=== PATIENT | female | born 2000 | race Caucasian/White ===

== ENCOUNTER 2023-11-25 17:57 | Emergency (ER) | payer OTHER, SELFPAY ==
--- NOTE | 2023-11-25 | ECG_ITS ---
Test Reason : chest pain Blood Pressure : / mmHG Vent. Rate : 106 BPM Atrial Rate : 106 BPM P-R Int : 124 ms QRS Dur : 074 ms QT Int : 326 ms P-R-T Axes : 081 065 036 degrees QTc Int : 433 ms Sinus tachycardia Possible Left atrial enlargement Nonspecific ST and T wave abnormality Borderline ECG No previous ECGs available Referred By: Generic ED Physician Electronically Signed By:ARELIS LYNN
[2023-11-25 18:11] VITALS: BP 141/89; PULSE 86; RESP 16; TEMP 36.4; O2SAT 100; BMI 23.2
--- NOTE | 2023-11-25 18:13 | ED.GENADULT ---
HPI - General Adult General Chief complaint: Chest Pain Stated complaint: chest pain x3 days Source: patient Mode of arrival: ambulatory Limitations: no limitations History of Present Illness ED Provider: Glendy Jacob PA-C HPI narrative: Patient is a 23 year old assigned female at with no reported medical history presenting to the emergency department today with left sided chest pain. Patient states that over the last 3 days she has had left sided chest pain. Patient denies any dizziness, lightheadedness, abdominal pain, nausea, vomiting, fever, chills, blurry vision, double vision, loss of vision, difficulty breathing, shortness of breath, back pain, night sweats, pain with urination, increased urinary frequency, increased urinary urgency, blood in his urine or stool, syncope or a near syncopal episode, recent trauma or falls, bowel incontinence, bladder incontinence, or any other complaints at this time. Onset (ago): day(s) (3) Location: chest Severity: mild Relieving factors: none Exacerbating factors: none Associated symptoms: chest pain Treatments prior to arrival: none Related Data Allergies Allergy/AdvReac Type Severity Reaction Status Date / Time No Known Allergies Allergy Verified 11/25/23 18:12 Review of Systems Constitutional: Constitutional: Reports no additional constitutional complaints, Denies chills, Denies fever(s) and Denies night sweats Eyes: Eyes: Reports no additional eye complaints, Denies blurry vision, Denies change in vision, Denies diplopia, Denies eye discharge, Denies loss of vision and Denies eye pain ENT: Denies dizziness Cardiovascular: Cardiovascular: Reports no additional cardiovascular complaints, Reports chest pain, Denies lightheadedness, Denies Loss of Consciousness and Denies dyspnea Respiratory: Respiratory: Reports no additional respiratory complaints and Denies dyspnea Gastrointestinal: Gastrointestinal: Reports no additional gastrointestinal complaints, Denies abdominal pain, Denies melena, Denies hematochezia, Denies change in bowel habits and Denies change in stool character Genitourinary: Genitourinary: Denies hematuria, Denies urinary frequency, Denies dysuria, Denies urinary incontinence, Denies urinary hesitancy and Denies urinary urgency Musculoskeletal: Musculoskeletal: Reports no additional musculoskeletal complaints, Denies numbness and Denies tingling Neurologic: Denies dizziness, Denies loss of vision, Denies numbness and Denies tingling Psychiatric: Psychiatric: Reports no additional psychiatric complaints Endocrine: Endocrine: Reports no additional endocrine complaints Hematologic/Lymphatic: Hematologic/Lymphatic: Reports no additional hematologic/lymphatic complaints Allergic/Immunologic: Allergic/Immunologic: Reports no additional allergic/immunologic complaints PMFSH Past Medical History Attestation statement: The following information was validated with the patient. Source: old records reviewed and nursing notes reviewed Social History Social History Advance Directives: No Advance Directives Information Provided: No Do you have a plan to hurt others: No Plan Physical Exam ED Vital Signs: BMI result Body Mass Index 23.2 Const General: cooperative, no acute distress, alert and awake Nutritional Appearance: well nourished Orientation/consciousness: patient oriented x3 Limitations: no limitations HENMT Head: Yes normal to inspection and Yes atraumatic Ears: hearing grossly normal bilaterally and external ears normal General nose exam: Normal external nose present, no nasal discharge noted and no epistaxis Face and sinus: Yes normal facial exam, No abrasion and No laceration Mouth: Normal oral and palatal mucosa present, no drooling and no muffled voice Eyes General: appearance normal, both eyes and all related structures Periorbital: periorbital findings normal Eyelids: Yes eyelids normal Conjunctivae: conjunctivae normal Pupils: Equal, round and reactive pupils present EOM: EOMs intact bilaterally Neck Neck: Yes normal visual inspection, Yes full ROM and Yes no lymphadenopathy Chest Chest palpation & inspection: normal inspection of the chest Resp Effort & Inspection: normal respiratory effort and able to speak in complete sentences GI Inspection: Yes normal to inspection Neuro General: patient oriented x3 and moves all extremities Cranial nerves: Yes Equal, round and reactive pupils present Cognition (Neuro): normal cognition Extrem General: Yes normal to inspection, Yes full ROM and Yes capillary refill normal Psych Appearance: grossly normal Mental Status: mental status grossly normal Affect: normal affect Attitude: cooperative Thought process: Normal thought process present Thought content: Normal thought content present Insight: Good insight present (Psych) Course Course Course Narrative: RME performed by Glendy Jacob PA-C. Patient is a 23 year old assigned female at presenting to the emergency department with chest pain. Patient states that she has been having intermittent chest pain all throughout today. Detailed physical exam and review of systems are deferred to the school plant consultant. EKG, labs, imaging, and swabs ordered. Patient placed back in the waiting room pending room availability and results. Medical Decision Making Medical Decision Making [facility] Narrative: Patient is a 23 year old assigned female at with no reported medical history presenting to the emergency department today with left sided chest pain. Patient's limited physical exam performed in triage was unremarkable. Patient's blood work was unremarkable. Patient's EKG was unremarkable. Patient left the department without completing treatment. Patient left the department before myself or any of the other emergency department clinicians could explain to or review with the patient; physical exam findings, test results, need or lack there of for additional testing, need or lack there of for a procedure to be performed, need or lack there of for hospital admission / transfer, need or lack there of for prescription medication, treatment options, or a treatment plan. Differential Diagnosis Differential Diagnoses: The differential diagnosis associated with the presentation includes NSTEMI STEMI Atypical chest pain Chest pain Admission/Observation Consideration of admission/observation: Escalation of care including admission/observation considered Patient would have been admitted to the hospital had her work up had any findings where hospital admission was appropriate and her clinical presentation warranted hospital admission. Lab Data [facility] Lab Attestation statement: I reviewed the patient's lab results. My interpretation of these results are in the MDM Rationale portion of this note. 11/25/23 18:27 11/25/23 18:27 Labs: Lab Results 11/25/23 Range/Units 18:27 WBC 10.9 H (4.8-10.8) X10*3/uL RBC 4.59 (4.20-5.50) X10*6/uL Hgb 14.4 (12.0-16.0) g/dl Hct 41.6 (37.0-47.0) % MCV 90.6 (80.0-98.0) fL MCH 31.4 (27.0-33.0) pg MCHC 34.6 (31.0-35.0) g/dl RDW 11.9 (11.0-16.0) % Plt Count 236 (160-400) X10*3/uL MPV 10.1 (9.4-12.3) fL Immature Gran % (Auto) 0.4 (0.0-0.4) % Neut % (Auto) 55.2 (45-73) % Lymph % (Auto) 36.8 (20-40) % Dickson % (Auto) 6.4 (2-11) % Eos % (Auto) 0.7 (0-4) % Baso % (Auto) 0.5 (0-2) % Lymph # (Auto) 4.0 (1.2-4.9) X10*3/uL Dickson # (Auto) 0.7 (0.1-1.2) X10*3/uL Eos # (Auto) 0.1 (0.0-0.4) X10*3/uL Baso # (Auto) 0.1 (0.0-0.2) X10*3/uL Abs Immat Gran (auto) 0.04 H (0.00-0.03) X10*3/uL Absolute Neuts (auto) 6.0 (2.0-8.3) x10*3/uL Absolute Nucleated RBC 0.000 (0.0-0.012) X10*3/uL Nucleated RBC % (auto) 0.0 (0.0-0.2) /100WBC Sodium 140 (135-145) mmol/L Potassium 3.7 (3.3-5.1) mmol/L Chloride 106 (96-108) mmol/L Carbon Dioxide 24 (22-29) mmol/L Anion Gap 14 (12-20) BUN 11 (9-16) mg/dL Creatinine 0.78 (0.5-1.4) mg/dL Estim Creat Clear Calc 98.5 Estimated GFR > 60 Random Glucose 94 (60-115) mg/dL Calcium 9.9 (8.4-10.2) mg/dL Magnesium 2.1 (1.6-2.6) mg/dL Total Bilirubin 2.1 H (0.0-1.0) mg/dL AST 14 (5-31) U/L ALT 9 (0-31) U/L Alkaline Phosphatase 47 (39-117) U/L Troponin I High Sens < 2.7 (<3.5-17.0) ng/L Total Protein 7.6 (6.5-8.0) g/dL Albumin 4.6 (3.5-5.0) g/dL Beta HCG, Quant < 2 mIU/mL Influenza Type A (PCR) NEGATIVE (Negative) Influenza Type B (PCR) NEGATIVE (Negative) RSV RNA Qual (PCR) NEGATIVE (Negative) SARS-CoV-2 RNA (RT-PCR) NEGATIVE (Negative) Independent Interpretation I performed an independent interpretation of an: EKG Interpretation: Vent. Rate: 106 BPM Atrial Rate: 106 BPM P-R Int: 124 ms QRS Dur: 074 ms QT Int: 326 ms P-R-T Axes: 081 065 036 degrees QTc Int: 433 ms Sinus tachycardia Possible Left atrial enlargement Borderline ECG No previous ECGs available DD/ [id number] Discharge Plan Discharge Clinical Impression: Chest pain Patient Disposition: Left W/O Completing Treatment Discharge Date/Time: 11/26/23 00:26
[2023-11-25 18:32] LABS: MANUAL DIFF FLAG NO
[2023-11-25 18:34] LABS: Basophils Absolute Auto 0.1 X10*3/uL (0.0-0.2); Basophils Percent Auto 0.5 % (0-2); Eosinophils Absolute Auto 0.1 X10*3/uL (0.0-0.4); Eosinophils Percent Auto 0.7 % (0-4); Hematocrit 41.6 % (37.0-47.0); Hemoglobin 14.4 g/dl (12.0-16.0); Imm Gran Abs Auto 0.04 X10*3/uL (0.00-0.03); Imm Gran Pct Auto 0.4 % (0.0-0.4); Lymphocytes Percent Auto 36.8 % (20-40); Mean Corpuscular HGB Conc 34.6 g/dl (31.0-35.0); Mean Corpuscular Hemoglobin 31.4 pg (27.0-33.0); Mean Corpuscular Volume 90.6 fL (80.0-98.0); Mean Platelet Volume 10.1 fL (9.4-12.3); Monocytes Absolute Auto 0.7 X10*3/uL (0.1-1.2); Monocytes Percent Auto 6.4 % (2-11); Neutrophils Percent Auto 55.2 % (45-73); Platelet Count 236 X10*3/uL (160-400); Red Blood Count 4.59 X10*6/uL (4.20-5.50); Red Cell Distribution Width 11.9 % (11.0-16.0); White Blood Count 10.9 X10*3/uL (4.8-10.8)
[2023-11-25 18:59] LABS: Alanine Aminotransferase 9 U/L (0-31); Albumin Level 4.6 g/dL (3.5-5.0); Alkaline Phosphatase 47 U/L (39-117); Anion Gap 14 (12-20); Aspartate Amino Transferase 14 U/L (5-31); Bilirubin Total 2.1 mg/dL (0.0-1.0); Blood Urea Nitrogen 11 mg/dL (9-16); Calcium 9.9 mg/dL (8.4-10.2); Carbon Dioxide 24 mmol/L (22-29); Chloride 106 mmol/L (96-108); Creatinine Clr Calc Pharmacy 98.5; Estimated Glomerular Filt Rate > 60; Glucose Random 94 mg/dL (60-115); Magnesium 2.1 mg/dL (1.6-2.6); Potassium 3.7 mmol/L (3.3-5.1); Sodium 140 mmol/L (135-145); Total Protein 7.6 g/dL (6.5-8.0)
[2023-11-25 19:03] LABS: HCG Quantitative < 2 mIU/mL; Troponin-I High Sensitivity < 2.7 ng/L (<3.5-17.0)
[2023-11-25 19:46] LABS: Influenza A PCR NEGATIVE (Negative); Influenza B PCR NEGATIVE (Negative); Resp Syncy Virus RNA Qual PCR NEGATIVE (Negative); SARS COV2 PCR INHOUSE NEGATIVE (Negative)
--- OUTSIDE RECORDS SUMMARY | 2023-11-25 22:18 | XMS_ITS | Continuity of Care Document ---
Author Organization [facility] Address [address] [address]- Care Team Providers Care Hotel Manager Name Role Phone Zulema DOLL, Piedad Dyson Primary Care Physician [phone] Encounter [facility] Date(s): 08/18/20 - 09/17/20 [facility] [address] [address] Allergies, Adverse Reactions, Alerts Substance Reaction Severity Status NKA Active Immunizations Given and Recorded Vaccine Date Status Refusal Reason meningococcal group B vaccine 08/23/20 Given meningococcal group B vaccine 01/15/19 Given Meningococcal Conjugate Vaccine 01/15/19 Given Meningococcal Conjugate Vaccine 10/12/14 Recorded influenza virus vaccine, inactivated 01/15/19 Give n influenza virus vaccine, inactivated 03/15/15 Chicho rded influenza virus vaccine, inactivated 02/05/13 Chicho rded influenza virus vaccine, inactivated 03/25/07 Give n influenza virus vaccine, inactivated 04/04/04 Give n influenza virus vaccine, inactivated 03/06/04 Give n Human Papillomavirus Vaccine 10/19/15 Recorded Human Papillomavirus Vaccine 03/15/15 Recorded Human Papillomavirus Vaccine 10/12/14 Recorded tetanus/diphtheria/pertussis, acel(Tdap) 10/12/14 Recorded Hepatitis A Pediatric Vaccine 1 09/17/11 Given Hepatitis A Pediatric Vaccine 2 09/12/10 Given influenza virus vaccine, live 3 03/22/10 Given influenza virus vaccine, live 4 01/31/09 Given influenza virus vaccine, live 5 02/03/08 Given influ virus vac, H1N1, inactive(oldterm) 6 01/31/09 Given Varicella Virus Vaccine 7 05/25/08 Given Varicella Virus Vaccine 04/04/04 Given Measles/Mumps/Rubella Virus Vaccine 03/25/07 Given Measles/Mumps/Rubella Virus Vaccine 12/21/03 Given diphtheria/tetanus/pertussis, acel(DTaP) 03/25/07 Given diphtheria/tetanus/pertussis, acel(DTaP) 12/21/03 Given diphtheria/tetanus/pertussis, acel(DTaP) 03/08/03 Given diphtheria/tetanus/pertussis, acel(DTaP) 02 Given diphtheria/tetanus/pertussis, acel(DTaP) 02 Given Poliovirus Vaccine, Inactivated 03/25/07 Given Poliovirus Vaccine, Inactivated 03/08/03 Given Poliovirus Vaccine, Inactivated 02 Given Poliovirus Vaccine, Inactivated 02 Given pneumococcal 7-valent vaccine 04/04/04 Given pneumococcal 7-valent vaccine 03/08/03 Given pneumococcal 7-valent vaccine 02 Given pneumococcal 7-valent vaccine 02 Given Haemophilus B Conj Vaccine (oldterm) 12/21/03 Give n Haemophilus B Conj Vaccine (oldterm) 03/08/03 Give n Haemophilus B Conj Vaccine (oldterm) 02 Give n Haemophilus B Conj Vaccine (oldterm) 02 Give n Haemophilus B Conj Vaccine (oldterm) 8 02 Gi arturo Hepatitis B Vaccine (old term) 06/07/03 Given Hepatitis B Vaccine (old term) 02 Given Hepatitis B Vaccine (old term) 02 Given 1Admin Note: vis 07/03/05 vis given 09/17/11 2Admin Note: VIS 07/03/05 Given 3Admin Note: VIS-11/22/2009 4Admin Note: VIS 11/23/08 given 5Admin Note: FluMist VIS (11/06/07) given 6Admin Note: VIS 01/14/09 given 7Admin Note: VIS (06/26/07) given 8Result Comment: duplicate entry Medications Aviane 100 mcg-20 mcg oral tablet 1 tablet, By Mouth, Daily, Please call and schedule a physical you are due in January 2020- [phone]., # 84 tablet, 3 Refills, Maintenance, 08/23/20 7:38:00 EDT, Tablet, [facility]/pharmacy #[id number], 1 tablet By Mouth Daily,Instr:Please call and schedule a... Start Date: 08/23/20 Status: Ordered Problem List Condition Effective Dates Status Health Status Inform ant Adolescent idiopathic scoliosis(Confirmed) Active Constipation(Confirmed) Active Healthy child(Confirmed) Active Neck pain(Confirmed) Active Social History Social History Type Response Smoking Status Never smoker; Tobacc o user in household: No entered on: 11/06/17 Sex
--- OUTSIDE RECORDS SUMMARY | 2023-11-25 22:18 | XMS_ITS | Continuity of Care Document ---
Author Organization [facility] Address [address] [address]- Care Team Providers Care Chenille Machine Operator Name Role Phone Piedad Poole MD Primary Care Physician Encounter [facility] Date(s): 06/05/19 - 06/12/19 [facility] [address] [address]- [facility] Attending Physician: Not on Staff, Attending MD Allergies, Adverse Reactions, Alerts Substance Reaction Severity Status NKA Active Immunizations Given and Recorded Vaccine Date Status Refusal Reason meningococcal group B vaccine 01/15/19 Given Meningococcal [...] oral tablet 1 tablet, By Mouth, Daily, # 28 tablet, 11 Refills, Maintenance, 10/06/18 14:04:27 EDT, Tablet, 1 tablet By Mouth Daily Start Date: 10/06/18 Status: Ordered MiraLax = 17 Gm, By Mouth, Daily, PRN Constipation, 0 Refills, Maintenance, 03/11/17 10:52:09 EST Start Date: 03/11/17 Status: Ordered MiraLax oral powder for reconstitution = 17 Gm, By Mouth, Daily, dissolve in 8 oz water before taking, # 510 Gm, 2 Refills, Maintenance, 11/28/18 14:30:46 EDT, REC Powder, 17 Gm By Mouth Daily,x30 days,Instr:dissolve in 8 oz water before taking Start Date: 11/28/18 Stop Date: 02/26/19 Status: Ordered Zofran 4 mg oral tablet 1 tablet = 4 mg, By Mouth, Every 8 hours, PRN Nausea & Vomiting, # 6 tablet, 0 Refills, Maintenance, 04/16/19 15:23:00 EST, Tablet, [id number], 163, cm, 04/16/19 14:55:00 EST, Height, 54.3, kg, 03/07/19 17:15:00 EST, Dry Weight Start Date: 04/16/19 Stop Date: 04/18/19 Status: Ordered Problem List Condition Effective Dates Status Health Status Inform ant Adolescent idiopathic scoliosis(Confirmed) Active Constipation(Confirmed) Active Healthy child(Confirmed) Active Neck pain(Confirmed) Active Social History Social History Type Response Smoking Status Never smoker; Tobacc o user in household: No entered on: 11/06/17 Sex
--- OUTSIDE RECORDS SUMMARY | 2023-11-25 22:18 | XMS_ITS | Continuity of Care Document ---
Author Organization [facility] [employer] Address [address] [address]- Care Team Providers Care Maintenance Pipefitter Name Role Phone Zulema DOLL, Piedad Dyson Primary Care Physician Encounter [facility] Date(s): 08/18/20 - 09/22/20 [facility] [address] [address]- Attending Physician: Erin Lang MD Allergies, Adverse Reactions, Alerts Substance Reaction [...] physical you are due in January 2020- [phone]., # 84 tablet, 3 Refills, Maintenance, 08/23/20 7:38:00 EDT, Tablet, [id number], 1 tablet By Mouth Daily,Instr:Please call [...]
--- OUTSIDE RECORDS SUMMARY | 2023-11-25 22:18 | XMS_ITS | Continuity of Care Document ---
Author Organization [facility] Address [address] [place] [address]- Care Team Providers Care Wildlife Conservationist Name Role Phone Ramiro Torres DO Primary Care Physician Encounter [facility] Date(s): 06/09/23 - 06/09/[address] [address]- Discharge Disposition: A-D/C Home Attending Physician: Bharath Luciano MD Admitting Physician: Mustapha DOLL, Bharath Referring Physician: Not on Staff, Referring MD Allergies, Adverse Reactions, Alerts No Known Allergies Immunizations Given and Recorded Vaccine Date Status Refusal Reason SARS-CoV-2 mRNA ([id number]) vax 1 01/02/23 Recorded influenza virus vaccine, inactivated 01/02/23 Chicho rded influenza virus vaccine, inactivated 03/20/22 Chicho rded influenza virus vaccine, inactivated 01/15/19 Give n influenza virus vaccine, inactivated 02/14/17 Chicho rded influenza virus vaccine, inactivated 03/15/15 Chicho rded influenza virus vaccine, inactivated 02/05/13 Chicho rded influenza virus vaccine, inactivated 03/25/07 Give n influenza virus vaccine, inactivated 04/04/04 Give n influenza virus vaccine, inactivated 03/06/04 Give n SARS-CoV-2 (COVID-19) mRNA-1273 vaccine 01/11/21 R ecorded SARS-CoV-2 (COVID-19) mRNA-1273 vaccine 12/14/20 R ecorded meningococcal group B vaccine 08/23/20 Given meningococcal group B vaccine 01/15/19 Given Meningococcal Conjugate Vaccine 01/15/19 Given Meningococcal Conjugate Vaccine 10/12/14 Recorded Human Papillomavirus Vaccine 10/19/15 Recorded Human Papillomavirus Vaccine 12/1/15 Recorded Human Papillomavirus Vaccine 10/12/14 Recorded tetanus/diphtheria/pertussis, acel(Tdap) 10/12/14 Recorded Hepatitis A Pediatric Vaccine 2 09/17/11 Given Hepatitis A Pediatric Vaccine 3 09/12/10 Given influenza virus vaccine, live 4 03/22/10 Given influenza virus vaccine, live 5 01/31/09 Given influenza virus vaccine, live 6 02/03/08 Given influ virus vac, H1N1, inactive(oldterm) 7 01/31/09 Given Varicella Virus Vaccine 8 05/25/08 Given Varicella Virus Vaccine 04/04/04 Given [...] B Conj Vaccine (oldterm) 02 Give n Hepatitis B Vaccine (old term) 06/07/03 Given Hepatitis B Vaccine (old term) 02 Given Hepatitis B Vaccine (old term) 02 Given 1Result Comment: Moderna 2Admin Note: vis 07/03/05 vis given 09/17/11 3Admin Note: VIS 07/03/05 Given 4Admin Note: VIS-11/22/2009 5Admin Note: VIS 08/11/09 given 6Admin Note: FluMist VIS (11/06/07) given 7Admin Note: VIS 01/14/09 given 8Admin Note: VIS (06/26/07) given Medications Diflucan 150 mg oral tablet 1 tablet = 150 mg, By Mouth, Once, PRN vaginal yeast infection, May repeat dose in 48-72 hours if needed., # 2 tablet, 0 Refills, Soft Stop, 10/14/22 11:13:00 EDT, [id number], Partial fill upon patient request if the prescription is for a sche... Start Date: 10/14/22 Status: Ordered Diflucan 150 mg oral tablet 1 tablet = 150 mg, By Mouth, Once, # 1 tablet, 0 Refills, Soft Stop, 11/23/21 11:40:00 EDT, Tablet,[facility], Partial fill upon patient request if the prescription is for a schedule II opioid drug., 166, cm, 11/23/21 11:19:00 EDT, Height, 61... Start Date: 11/23/21 Status: Ordered Diflucan 150 mg oral tablet 1 tablet = 150 mg, By Mouth, Once, # 1 tablet, 1 Refills, Soft Stop, 10/05/21 12:48:00 EDT, [facility], Partial fill upon patient request if the prescription is for a schedule II opioid drug., 164, cm, 10/05/21 10:00:00 EDT, Height, 61.6, kg,... Start Date: 10/05/21 Status: Ordered ondansetron 4 mg oral tablet, disintegrating 1 tablet = 4 mg, By Mouth, Every 8 hours, PRN Nausea & Vomiting, # 10 tablet, 0 Refills, Acute 06/14/23 23:01:00 EST, 06/09/23 23:01:00 EST, Tablet, [facility], Partial fill upon patient request if the prescription is for a schedule II opioid... Start Date: 06/09/23 Stop Date: 06/14/23 Status: Ordered Problem List Condition Confirmation Course Effective Dates Status Health St atus Informant Adolescent idiopathic scoliosis Confirmed Active Constipation Confirmed Active Well adult exam Confirmed Active Vital Signs Most recent to oldest [Reference Range]: 1 2 Height 165 cm (06/09/23 8:15 PM) Weight 59.6 kg (06/09/23 8:15 PM) Oxygen Saturation [94-100 %] 98 % (06/09/23 11:14 PM) 99 % (06/09/23 8:15 PM) Pulse Rate [55-90 bpm] 86 bpm (06/09/23 11:14 PM) 94 bpm *H* (06/09/23 8:15 PM) Blood Pressure [90-138/55-84 mm Hg] 114/ 62mm Hg (06/09/23 11:14 PM) 119/86mm Hg (06/09/23 8:15 PM) Respiratory Rate [16-30 br/min] 20 br/mi n (06/09/23 11:14 PM) 18 br/min (06/09/23 8:15 PM) Temperature [96.8-100.4 DegF] 98.6 DegF (06/09/23 8:15 PM) Mode of Delivery (Oxygen) Room air (06/09/23 11:14 PM) Room air (06/09/23 8:15 PM) Blood pressure sites Arm, right (06/09/23 11:14 PM) Arm, right (06/09/23 8:15 PM) Temperature Route Temporal (06/09/23 8:15 PM) Dry Weight 59.6 kg (06/09/23 8:15 PM) Weight Obtained Via Standing scale (06/09/23 8:15 PM) Dry Weight Obtained Via Standing scale (06/09/23 8:15 PM) Social History Social History Type Response Smoking Status Never smoker; Tobacc o user in household: No entered on: 11/06/17 Sex Patient Care team information Care Team Personnel Name: Ramiro Torres DO Position: [facility] Outreach Member Role: PCP Address: Address: [address] [place] [address] [address] [place] [address]- Care Team Related Persons Name: BRANDON LUJAN Address: [address] [place] [address] Name: NATO LUJAN Address: [address] [place] [address] Name: JOSH LUJAN Address: [place] [address] Name: JACOB RAYO Address: [address] [place] [address] Name: ALISHA BRITO Address: [address] [facility] [address]
--- OUTSIDE RECORDS SUMMARY | 2023-11-25 22:18 | XMS_ITS | Continuity of Care Document ---
Author Organization [facility] Address Unknown Care Team Providers Care Skating Rink Ice Maker Name Role Phone Zulema DOLL, Piedad Dyson Primary Care Physician [phone] Encounter [facility] Date(s): 12/29/20 - 01/05/21 [facility] Encounter Diagnosis Strain of left levator scapulae muscle(Discharge Diagnosis) - 12/29/20 Strain of left trapezius muscle(Discharge Diagnosis) - 12/29/20 Myofascial pain on left side(Discharge Diagnosis) - 12/29/20 Attending Physician: Teresa Gao Allergies, Adverse Reactions, Alerts Substance Reaction Severity Status NKA Active Immunizations Given and Recorded Vaccine Date Status Refusal Reason SARS-CoV-2 (COVID-19) mRNA-1273 vaccine 12/14/20 R ecorded [...] B Conj Vaccine (oldterm) 8 02 Gi atruro Hepatitis B Vaccine (old term) 06/07/03 Given [...] tablet 1 tablet, By Mouth, Daily, # 84 tablet, 3 Refills, Maintenance, 12/23/20 11:33:00 EDT, Tablet, [facility], 1 tablet By Mouth Daily, 163.5, cm, 12/23/20 10:50:00 EDT, Height, 58.6, kg, 12/23/20 10:50:00 EDT, Dry Weight Start Date: 12/23/20 Status: Ordered nicotine 14 mg/24 hr transdermal film, extended release 1 patch, Topically, Daily, for 14 days, Do not cut patch., # 14 patch, 1 Refills, Acute 01/11/21 7:30:00 EDT, 12/14/20 7:30:00 EDT, Patch, [facility], Partial fill upon patient request if theprescription is for a schedule II opioid drug., 1 p... Start Date: 12/14/20 Stop Date: 01/11/21 Status: Ordered Problem List Condition Effective Dates Status Health Status Inform ant Adolescent idiopathic scoliosis(Confirmed) Active Constipation(Confirmed) Active Well adult exam(Confirmed) Active Diagnosis Diagnosis Type Effective Dates Health Status Clinical Service Informant Strain of left levator scapulae muscle Discharge Diagnosis 12/29/20 Strain of left trapezius muscle Discharge Diagnosis 12/29/20 Myofascial pain on left side Discharge Diagnosis 12/29/20 Vital Signs Most recent to oldest [Reference Range]: 1 Height 163.8 cm (12/29/20 10:59 AM) Weight 59.2 kg (12/29/20 10:59 AM) Body Mass Index [18.5-24.99] 22.06 (12/29/20 10:59 AM) Blood Pressure [71-110/30-71 mm Hg] 108/ 60mm Hg (12/29/20 10:59 AM) Temperature [96.8-100.4 DegF] 97.9 DegF (12/29/20 10:59 AM) Blood pressure sites Arm, left (12/29/20 10:59 AM) Temperature Route Temporal (12/29/20 10:59 AM) Dry Weight 59.2 kg (12/29/20 10:59 AM) Social History Social History Type Response Smoking Status Never smoker; Tobacc o user in household: No entered on: 11/06/17 Sex
--- OUTSIDE RECORDS SUMMARY | 2023-11-25 22:18 | XMS_ITS | Continuity of Care Document ---
Author Organization [facility] [employer] Address [address] [address]- Care Team Providers Care Crop Farm Helper Name Role Phone Zulema DOLL, Piedad Dyson Primary Care Physician Encounter [facility] Date(s): 04/04/22 - 05/04/22 [facility] [employer] [address] [address]- Allergies, Adverse Reactions, Alerts No Known Allergies Immunizations Given and Recorded Vaccine Date Status Refusal Reason SARS-CoV-2 (COVID-19) mRNA-1273 vaccine 01/11/21 R ecorded [...] (06/26/07) given 8Result Comment: duplicate entry Medications Diflucan 150 mg oral tablet 1 [...] 61.6, kg,... Start Date: 10/05/21 Status: Ordered Problem List Condition Confirmation Course Effective Dates Status Health St atus Informant Adolescent idiopathic scoliosis Confirmed Active Constipation Confirmed Active Well adult exam Confirmed Active Social History Social History Type Response Smoking Status Never smoker; Tobacc o user in household: No entered on: 11/06/17 Sex Patient Care team information Care Team Personnel Name: Zulema DOLL, Piedad Dyson Position: [facility] Primary Care Physician Member Role: PCP Address: Address: [address] [place] [address], [address] [place] [address]- Care Team Related Persons Name: BRANDON LUJAN Address: home [address] [place], [place] Name: JOSH LUJAN Address: [place] [address] Name: JACOB RAYO Address: home [address] [place] [address] Name: ALISHA BRITO Address: home [address] [place], [place] Name: SHON LEDESMA Address: home [address] [place], [place]
--- OUTSIDE RECORDS SUMMARY | 2023-11-25 22:18 | XMS_ITS | Continuity of Care Document ---
Author Organization [facility] Address [address] [place] [address]- Care Team Providers Care Garment Examiner Name Role Phone Piedad Poole MD Primary Care Physician Encounter [facility] Date(s): 05/28/20 - 05/28/20 [facility] [address] [place] [address]- Discharge Disposition: A-D/C Home Attending Physician: Mohan Hung MD Admitting Physician: Mohan Hung MD Referring Physician: Not on Staff, Referring MD Allergies, Adverse Reactions, Alerts Substance Reaction [...] physical you are due in January 2020- [phone] we will send a reminder, # 84 tablet, 3 Refills, Maintenance, 09/14/19 11:17:00 EDT, Tablet, [facility]/pharmacy #1230, 1 tablet By Mouth Daily,Instr:Ple... Start Date: 09/14/19 Status: Ordered Problem List Condition Effective Dates Status Health Status Inform ant Adolescent idiopathic scoliosis(Confirmed) Active Constipation(Confirmed) Active Healthy child(Confirmed) Active Neck pain(Confirmed) Active Results Orders for Microbiology Reports Name Date Group A Strep Screen and Culture 05/28/20 Microbiology Reports TEST:Group A Strep Screen and Culture STATUS:Unauthenticated BODY SITE: SOURCE:THROAT COLLECTED DATE/TIME:05/28/20 4:31 PM Group A Strep Screen and Culture SPECIMEN DESCRIPTION : THROAT SWAB SPECIAL REQUESTS : NONE DIRECT EXAM : RAPID GROUP A RESULT IS NEGATIVE, REFER TO CULTURE RESULT. REPORT STATUS : PRELIMINARY REPORT Vital Signs Most recent to oldest [Reference Range]: 1 Height 165 cm (05/28/20 4:26 PM) Weight 58 kg (05/28/20 4:26 PM) Oxygen Saturation [94-100 %] 97 % (05/28/20 4:26 PM) Pulse Rate [55-90 bpm] 128 bpm *H* (05/28/20 4:26 PM) Blood Pressure [80-130/50-80 mm Hg] 119/ 73mm Hg (05/28/20 4:26 PM) Respiratory Rate [16-30 br/min] 18 br/mi n (05/28/20 4:26 PM) Temperature [96.8-100.4 DegF] 100.3 DegF (05/28/20 4:26 PM) Mode of Delivery (Oxygen) Room air (05/28/20 4:26 PM) Blood pressure sites Arm, right (05/28/20 4:26 PM) Temperature Route Oral (05/28/20 4:26 PM) Dry Weight 58 kg (05/28/20 4:26 PM) Weight Obtained Via Standing scale (05/28/20 4:26 PM) Social History Social History Type Response Smoking Status Never smoker; Tobacc o user in household: No entered on: 11/06/17 Sex
--- OUTSIDE RECORDS SUMMARY | 2023-11-25 22:18 | XMS_ITS | Continuity of Care Document ---
Author Organization [facility] [employer] Address [address] [address]- Care Team Providers Care Casket Coverer Name Role Phone Piedad Poole MD Primary Care Physician Encounter [facility] Date(s): 04/01/20 - 05/01/20 [facility] [employer] [facility] [address] [address]- Allergies, Adverse Reactions, Alerts Substance Reaction Severity [...] physical you are due in January 2020- [phone] we will send a reminder, # 84 tablet, 3 Refills, Maintenance, 09/14/19 11:17:00 EDT, Tablet, [facility], 1 tablet By Mouth Daily,Instr:Ple... Start Date: 09/14/19 Status: Ordered Problem List Condition Effective Dates Status Health Status Inform ant Adolescent idiopathic scoliosis(Confirmed) Active Constipation(Confirmed) Active Healthy child(Confirmed) Active Neck pain(Confirmed) Active Social History Social History Type Response Smoking Status Never smoker; Tobacc o user in household: No entered on: 11/06/17 Sex
--- OUTSIDE RECORDS SUMMARY | 2023-11-25 22:18 | XMS_ITS | Continuity of Care Document ---
Author Organization [facility] [employer] Address [address] [address]- Care Team Providers Care Cutting Inspector Name Role Phone iPedad Poole MD Primary Care Physician Encounter [facility] Date(s): 08/10/20 - 08/17/20 [employer] [address] [address]- Attending Physician: Piedad Poole MD Allergies, Adverse Reactions, Alerts Substance Reaction [...] physical you are due in January 2020- [phone]., # 84 tablet, 3 Refills, Maintenance, 08/11/20 14:41:00 EDT, Tablet, [facility]/pharmacy #1230, 1 tablet By Mouth Daily,Instr:Please call and schedule a... Start Date: 08/11/20 Status: Ordered Melatonin 5 mg oral tablet 1 tablet = 5 mg, By Mouth, Daily at bedtime, for 30 days, # 30 tablet, 0 Refills, Acute 09/09/20 11:11:00 EDT, 08/10/20 11:11:00 EDT, [facility]/pharmacy #1230, Partial fill upon patient request if the prescription is for a schedule II opioid drug., 165, cm,... Start Date: 08/10/20 Stop Date: 09/09/20 Status: Ordered Problem List Condition Effective Dates Status Health Status Inform ant Adolescent idiopathic scoliosis(Confirmed) Active Constipation(Confirmed) Active Healthy child(Confirmed) Active Neck pain(Confirmed) Active Social History Social History Type Response Smoking Status Never smoker; Tobacc o user in household: No entered on: 11/06/17 Sex
--- OUTSIDE RECORDS SUMMARY | 2023-11-25 22:18 | XMS_ITS | Continuity of Care Document ---
Author Organization [facility] [employer] Address [address] [address]- Care Team Providers Care Prototype Machinist Name Role Phone Piedad Poole MD Primary Care Physician Encounter [facility] Date(s): 03/30/20 - 04/30/20 [facility] [employer] [facility] [address] [address]- Attending Physician: Piedad Poole MD Allergies, Adverse [...] physical you are due in January 2020- [phone] we will send a reminder, # 84 tablet, 3 Refills, Maintenance, 09/14/19 11:17:00 EDT, Tablet, [facility], 1 tablet By Mouth Daily,Instr:Ple... Start Date: 6/1/20 Status: Ordered Problem List Condition Effective Dates Status Health Status Inform ant Adolescent idiopathic scoliosis(Confirmed) Active Constipation(Confirmed) Active Healthy child(Confirmed) Active Neck pain(Confirmed) Active Social History Social History Type Response Smoking Status Never smoker; Tobacc o user in household: No entered on: 11/06/17 Sex
--- OUTSIDE RECORDS SUMMARY | 2023-11-25 22:18 | XMS_ITS | Continuity of Care Document ---
Author Organization [facility] Address [address] [place] [address]- Care Team Providers Care Refrigerator Car Icer Name Role Phone Piedad Poole MD Primary Care Physician Encounter [facility] Date(s): 09/18/20 - 10/22/[address] [address]- Attending Physician: Teresa Gao Admitting Physician: Teresa Gao Referring Physician: Teresa Gao Allergies, Adverse Reactions, Alerts [...] physical you are due in January 2020- [phone]., # 84 tablet, 3 Refills, Maintenance, 08/23/20 [...]
--- OUTSIDE RECORDS SUMMARY | 2023-11-25 22:18 | XMS_ITS | Continuity of Care Document ---
Author Organization [facility] Address Unknown Care Team Providers Care Real Estate Sales Manager Name Role Phone Piedad Poole MD Primary Care Physician Encounter [facility] Date(s): 12/23/20 - 12/30/20 [facility] Attending Physician: Piedad Poole MD Allergies, Adverse Reactions, Alerts Substance Reaction Severity Status NKA Active Immunizations Given and Recorded Vaccine Date Status Refusal Reason SARS-CoV-2 (COVID-19) mRNA-1279 vaccine 12/14/20 R ecorded meningococcal group B [...] Active Constipation(Confirmed) Active Well adult exam(Confirmed) Active Vital Signs Most recent to oldest [Reference Range]: 1 Height 163.5 cm (12/23/20 10:50 AM) Weight 58.6 kg (12/23/20 10:50 AM) Body Mass Index [18.5-24.99] 21.92 (12/23/20 10:50 AM) Blood Pressure [71-110/30-71 mm Hg] 104/ 68mm Hg (12/23/20 10:50 AM) Blood pressure sites Arm, left (12/23/20 10:50 AM) Dry Weight 58.6 kg (12/23/20 10:50 AM) Social History Social History Type Response Smoking Status Never smoker; Tobacc o user in household: No entered on: 11/06/17 Sex
--- OUTSIDE RECORDS SUMMARY | 2023-11-25 22:18 | XMS_ITS | Continuity of Care Document ---
Author Organization [facility] Address Unknown Care Team Providers Care Ticket Dispatcher Name Role Phone Piedad Poole MD Primary Care Physician Encounter [facility] Date(s): 10/05/21 - 10/12/21 [facility] Attending Physician: Piedad Poole MD Allergies, Adverse Reactions, Alerts No Known [...] Daily, # 84 tablet, 3 Refills, Maintenance, 06/23/21 13:13:00 EST, Tablet, [facility], 1 tablet By Mouth Daily, 163, cm, 05/30/21 16:57:00 EST, Height, 57, kg, 05/30/21 16:57:00 EST, Dry Weight Start Date: 06/23/21 Status: Ordered Diflucan 150 mg oral tablet 1 tablet = 150 mg, By Mouth, Once, # 1 tablet, 1 Refills, Soft Stop, 10/05/21 12:48:00 EDT, [facility], Partial fill upon patient request if the prescription is for a schedule II opioid drug., 164, cm, 10/05/21 10:00:00 EDT, Height, 61.6, kg,... Start Date: 10/05/21 Status: Ordered metroNIDAZOLE 500 mg oral tablet 1 tablet = 500 mg, By Mouth, 2 times a day, for 7 days, # 14 tablet, 0 Refills, Acute 10/13/21 17:15:00 EDT, 10/06/21 17:15:00 EDT, Tablet, [facility]/pharmacy #1230, Partial fill upon patient request if the prescription is for a schedule II opioid drug., 16... Start Date: 10/06/21 Stop Date: 10/13/21 Status: Ordered Problem List Condition Effective Dates Status Health Status Inform ant Adolescent idiopathic scoliosis(Confirmed) Active Constipation(Confirmed) Active Well adult exam(Confirmed) Active Vital Signs Most recent to oldest [Reference Range]: 1 Height 164 cm (10/05/21 10:00 AM) Weight 61.6 kg (10/05/21 10:00 AM) Oxygen Saturation [94-100 %] 98 % (10/05/21 10:00 AM) Pulse Rate [55-90 bpm] 75 bpm (10/05/21 10:00 AM) Body Mass Index [18.5-24.99] 22.9 (10/05/21 10:00 AM) Blood Pressure [90-138/55-84 mm Hg] 120/ 78mm Hg (10/05/21 10:00 AM) Blood pressure sites Arm, left (10/05/21 10:00 AM) Dry Weight 61.6 kg (10/05/21 10:00 AM) Social History Social History Type Response Smoking Status Never smoker; Tobacc o user in household: No entered on: 11/06/17 Sex
--- OUTSIDE RECORDS SUMMARY | 2023-11-25 22:18 | XMS_ITS | Continuity of Care Document ---
Author Organization [facility] [employer] [facility] Address [address] [place] [address]- Care Team Providers Care Home Aide Name Role Phone Zulema DOLL, Piedad Dyson Primary Care Physician [phone] Encounter [facility] Date(s): 04/23/22 - 04/30/22 [facility] [employer] [facility] [address] [place] [address]- Attending Physician: Akshat Sharpe MD Referring Physician: Blane Rojas Allergies, Adverse Reactions, Alerts No Known Allergies [...] recent to oldest [Reference Range]: 1 Height 166 cm (04/23/22 9:01 AM) Height Percentile 66.12 % 1 (04/23/22 9:01 AM) Height ZScore 0.42 2 (04/23/22 9:01 AM) 1Result Comment: ^~:!Percentile Source -CDC/WHO 2Result Comment: ^~:!ZScore Source -CDC/WHO Social History Social History Type Response Smoking Status Never smoker; Tobacc o user in household: No entered on: 11/06/17 Sex Patient Care team information Care Team Personnel Name: Piedad Poole MD Position: [facility] Primary Care Physician Member Role: PCP Address: Address: [address] [place] [address], [address] [facility] [place] [address]- Care Team Related Persons Name: BRANDON LUJAN Address: home [address] [place], [place] Name: JOSH LUJAN Address: [place] [address] Name: JACOB RAYO Address: home [address] [place] [address] Name: ALISHA BRITO Address: home [address] [place], [place] Name: SHON LEDESMA Address: home [address] [place] [address]
--- OUTSIDE RECORDS SUMMARY | 2023-11-25 22:18 | XMS_ITS | Continuity of Care Document ---
Author Organization [facility] Address [address] [address]- Care Team Providers Care Survey Associate Name Role Phone Piedad Poole MD Primary Care Physician Encounter [facility] Date(s): 09/07/20 - 09/14/[address] [facility] [address] [address]- Attending Physician: Piedad Poole MD Allergies, Adverse [...] physical you are due in January 2020- [phone]., # 84 tablet, 3 Refills, Maintenance, 08/23/20 [...]
--- OUTSIDE RECORDS SUMMARY | 2023-11-25 22:18 | XMS_ITS | Continuity of Care Document ---
Author Organization [facility] [employer] Address [address] [address]- Care Team Providers Care Cash Accounting Clerk Name Role Phone Piedad Poole MD Primary Care Physician [phone] Encounter [facility] Date(s): 06/05/19 - 06/15/19 [facility] [employer] [address] [address]- [facility] Attending Physician: AdmAlex pineda Admitting Physician: AdmtrAlex Referring Physician: Admtr, Ar8 Allergies, Adverse Reactions, Alerts Substance Reaction Severity [...]
--- OUTSIDE RECORDS SUMMARY | 2023-11-25 22:18 | XMS_ITS | Continuity of Care Document ---
Author Organization [facility] [employer] Address [address] [address]- Care Team Providers Care Trading Specialist Name Role Phone Zulema DOLL, Piedad Dyson Primary Care Physician [phone] Encounter [facility] Date(s): 04/12/22 - 05/12/22 [facility] [employer] [address] [address]- Allergies, Adverse Reactions, Alerts No Known Allergies [...] Personnel Name: Zulema DOLL, Piedad Dyson Position: [facility] Primary Care Physician Member Role: PCP Address: Address: [address] [place] [address], [address] [place] [address]- Care Team Related Persons Name: BRANDON LUJAN Address: home [address] [place], [place] Name: JOSH LUJAN Address: [place] [address] Name: JACOB RAYO Address: home [address] [place] [address] Name: ALISHA BRITO Address: home [address] [place], [place] Name: SHON LEDESMA Address: [address] [place], [place]
--- OUTSIDE RECORDS SUMMARY | 2023-11-25 22:18 | XMS_ITS | Continuity of Care Document ---
Author Organization [facility] [employer] Address [address] [address]- Care Team Providers Care Parachute Folder Name Role Phone Piedad Poole MD Primary Care Physician [phone] Encounter [facility] Date(s): 01/15/20 - 02/14/20 [facility] [employer] [facility] [address] [address]- [facility] Allergies, Adverse Reactions, Alerts Substance Reaction Severity [...] physical you are due in January 2020- [phone] we will send a reminder, # 84 tablet, 3 Refills, Maintenance, 09/14/19 11:17:00 EDT, Tablet, [facility]/pharmacy #1230, 1 tablet By Mouth Daily,Instr:Ple... Start Date: 09/14/19 Status: Ordered CeleBREX 100 mg oral capsule 1 capsule = 100 mg, By Mouth, 2 times a day, # 15 capsule, 0 Refills, Maintenance, 12/29/19 13:43:00 EDT, Capsule, [facility], 166, cm, 12/29/19 13:22:00 EDT, Height, 54.4, kg, 12/29/19 13:22:00 EDT, Dry Weight Start Date: 12/29/19 Status: Ordered Problem List Condition Effective Dates Status Health Status Inform ant Adolescent idiopathic scoliosis(Confirmed) Active Constipation(Confirmed) Active Healthy child(Confirmed) Active Neck pain(Confirmed) Active Social History Social History Type Response Smoking Status Never smoker; Tobacc o user in household: No entered on: 11/06/17 Sex
--- OUTSIDE RECORDS SUMMARY | 2023-11-25 22:18 | XMS_ITS | Continuity of Care Document ---
Author Organization [facility] [employer] Address [address] [address]- Care Team Providers Care Backup Sawyer Name Role Phone Piedad Poole MD Primary Care Physician Encounter [facility] Date(s): 08/23/20 - 08/30/20 [facility] [employer] [address] [address]- Attending Physician: Piedad Poole MD Allergies, Adverse [...] physical you are due in January 2020- [phone]., # 84 tablet, 3 Refills, Maintenance, 08/23/20 7:38:00 EDT, Tablet, [facility]/pharmacy #1230, 1 tablet By Mouth Daily,Instr:Please call and schedule a... Start Date: 08/23/20 Status: Ordered Melatonin 5 mg oral tablet 1 tablet = 5 mg, By Mouth, Daily at bedtime, for 30 days, # 30 tablet, 0 Refills, Acute 09/09/20 11:11:00 EDT, 08/10/20 11:11:00 EDT, [facility]/pharmacy #1230, Partial fill upon patient request if the prescription is for a schedule II opioid drug., 165, cm,... Start Date: 08/10/20 Stop Date: 09/09/20 Status: Ordered Problem List Condition Effective Dates Status Health Status Inform ant Adolescent idiopathic scoliosis(Confirmed) Active Constipation(Confirmed) Active Healthy child(Confirmed) Active Neck pain(Confirmed) Active Vital Signs Most recent to oldest [Reference Range]: 1 Height 163.9 cm (08/23/20 7:19 AM) Weight 60.3 kg (08/23/20 7:19 AM) Body Mass Index [18.5-24.99] 22.45 (08/23/20 7:19 AM) Blood Pressure [80-130/50-80 mm Hg] 124/ 82mm Hg (08/23/20 7:19 AM) Blood pressure sites Arm, left (08/23/20 7:19 AM) Dry Weight 60.3 kg (08/23/20 7:19 AM) Social History Social History Type Response Smoking Status Never smoker; Tobacc o user in household: No entered on: 11/06/17 Sex
--- OUTSIDE RECORDS SUMMARY | 2023-11-25 22:18 | XMS_ITS | Continuity of Care Document ---
Author Organization [facility] [employer] Address [address] [address]- Care Team Providers Care Industrial Controller Name Role Phone Zulema DOLL, Piedad Dyson Primary Care Physician Encounter [facility] Date(s): 08/10/20 - 09/09/20 [facility] [employer] [address] [address] Allergies, Adverse Reactions, Alerts Substance Reaction [...] physical you are due in January 2020- [phone]., # 84 tablet, 3 Refills, Maintenance, 08/23/20 7:38:00 EDT, Tablet, [facility]/pharmacy #1230, 1 tablet By Mouth Daily,Instr:Please call [...]
--- OUTSIDE RECORDS SUMMARY | 2023-11-25 22:18 | XMS_ITS | Continuity of Care Document ---
Author Organization [employer] Address [address] [address]- Care Team Providers Care Electrical Drafter Name Role Phone Piedad Poole MD Primary Care Physician Encounter [facility] Date(s): 10/08/19 - 10/15/19 [employer] [address] [address]- [facility] Encounter Diagnosis Visit for control pills maintenance(Discharge Diagnosis) - 10/08/19 Attending Physician: Teresa Gao Allergies, Adverse Reactions, [...] physical you are due in January 2020- [phone] we will send a reminder, # 84 tablet, 3 Refills, Maintenance, 09/14/19 11:17:00 EDT, Tablet, [facility], 1 tablet By Mouth Daily,Instr:Ple... Start Date: 09/14/19 Status: Ordered MiraLax = 17 Gm, By [...] 0 Refills, Maintenance, 04/16/19 15:23:00 EST, Tablet, [facility], 163, cm, 04/16/19 14:55:00 EST, Height, 54.3, kg, 03/07/19 17:15:00 EST, Dry Weight Start Date: 04/16/19 Stop Date: 04/18/19 Status: Ordered Problem List Condition Effective Dates Status Health Status Inform ant Adolescent idiopathic scoliosis(Confirmed) Active Constipation(Confirmed) Active Healthy child(Confirmed) Active Neck pain(Confirmed) Active Diagnosis Diagnosis Type Effective Dates Health Status Clinical Service Informant Visit for control pills maintenance Discharge Diagnosis 10/08/19 Vital Signs Most recent to oldest [Reference Range]: 1 Height 164.3 cm (10/08/19 8:04 AM) Weight 53.4 kg (10/08/19 8:04 AM) Body Mass Index [18.5-24.99] 19.78 (10/08/19 8:04 AM) Blood Pressure [80-130/50-80 mm Hg] 112/ 74mm Hg (10/08/19 8:04 AM) Blood pressure sites Arm, left (10/08/19 8:04 AM) Dry Weight 53.4 kg (10/08/19 8:04 AM) Dry Weight Obtained Via Standing scale (10/08/19 8:04 AM) Social History Social History Type Response Smoking Status Never smoker; Tobacc o user in household: No entered on: 11/06/17 Sex
--- OUTSIDE RECORDS SUMMARY | 2023-11-25 22:18 | XMS_ITS | Continuity of Care Document ---
Author Organization [facility] [employer] Address [address] [address]- Care Team Providers Care R Programmer Name Role Phone Piedad Poole MD Primary Care Physician [phone] Encounter [facility] Date(s): 02/15/20 - 04/08/20 [facility] [employer] [facility] [address] [address]- Attending Physician: Teresa Gao Allergies, Adverse Reactions, [...] physical you are due in January 2020- [phone] we will send a reminder, # 84 [...]
--- OUTSIDE RECORDS SUMMARY | 2023-11-25 22:19 | XMS_ITS | Continuity of Care Document ---
Author Organization [facility] [employer] Address [address] [address]- Care Team Providers Care Car Carder Name Role Phone Piedad Poole MD Primary Care Physician [phone] Encounter [facility] Date(s): 02/10/20 - 03/28/20 [facility] [employer] [facility] [address] [address]- Attending Physician: George Wagner MD Referring Physician: Piedad Poole MD Allergies, Adverse Reactions, [...] physical you are due in January 2020- [phone] we will send a reminder, # 84 tablet, 3 Refills, Maintenance, 09/14/19 11:17:00 EDT, Tablet, [facility]/pharmacy #1230, 1 tablet By [...]
--- OUTSIDE RECORDS SUMMARY | 2023-11-25 22:19 | XMS_ITS | Continuity of Care Document ---
Author Organization [facility] [employer] Address Unknown Care Team Providers Care Reproduction Technician Name Role Phone Piedad Poole MD Primary Care Physician Encounter [facility] Date(s): 11/23/20 - 11/30/20 [facility] [employer] [facility] Attending Physician: Piedad Poole MD Allergies, [...] physical you are due in January 2020- [phone]., # 84 tablet, 3 Refills, Maintenance, 08/23/20 7:38:00 EDT, Tablet, [facility]/pharmacy #1230, 1 tablet By Mouth Daily,Instr:Please call and schedule a... Start Date: 08/23/20 Status: Ordered Problem List Condition Effective Dates Status Health Status Inform ant Adolescent idiopathic scoliosis(Confirmed) Active Constipation(Confirmed) Active Well adult exam(Confirmed) Active Vital Signs Most recent to oldest [Reference Range]: 1 Height 164.2 cm (11/23/20 7:06 AM) Weight 59.5 kg (11/23/20 7:06 AM) Pulse Rate [55-90 bpm] 68 bpm (11/23/20 7:06 AM) Body Mass Index [18.5-24.99] 22.07 (11/23/20 7:06 AM) Blood Pressure [71-110/30-71 mm Hg] 120/ 70mm Hg *H* (11/23/20 7:06 AM) Dry Weight 59.5 kg (11/23/20 7:06 AM) Social History Social History Type Response Smoking Status Never smoker; Tobacc o user in household: No entered on: 11/06/17 Sex
--- OUTSIDE RECORDS SUMMARY | 2023-11-25 22:19 | XMS_ITS | Continuity of Care Document ---
Author Organization [facility] Address [address] [place] [address]- Care Team Providers Care Plant Operator/Shift Supervisor Name Role Phone Piedad Poole MD Primary Care Physician Encounter [facility] Date(s): 12/29/19 - 12/29/[address] [address]- [facility] Discharge Disposition: A-D/C Home Attending Physician: Ketan Melara MD Admitting Physician: Ketan Melara MD Referring Physician: Not on Staff, Referring [...] physical you are due in January 2020- [phone] we will send a reminder, # 84 tablet, 3 Refills, Maintenance, 09/14/19 11:17:00 EDT, Tablet, [facility]/pharmacy #1230, 1 tablet By Mouth Daily,Instr:Ple... [...] oldest [Reference Range]: 1 Height 166 cm (12/29/19 1:22 PM) Weight 54.4 kg (12/29/19 1:22 PM) Oxygen Saturation [94-100 %] 100 % (12/29/19 1:22 PM) Pulse Rate [55-90 bpm] 4 bpm *L* (12/29/19 1:22 PM) Blood Pressure [80-130/50-80 mm Hg] 132/ 97mm Hg *H* (12/29/19 1:22 PM) Respiratory Rate [16-30 br/min] 18 br/mi n (12/29/19 1:22 PM) Temperature [96.8-100.4 DegF] 99.0 DegF (12/29/19 1:22 PM) Mode of Delivery (Oxygen) Room air (12/29/19 1:22 PM) Blood pressure sites Arm, right (12/29/19 1:22 PM) Temperature Route Temporal (12/29/19 1:22 PM) Dry Weight 54.4 kg (12/29/19 1:22 PM) Dry Weight Obtained Via Standing scale (12/29/19 1:22 PM) Social History Social History Type Response Smoking Status Never smoker; Tobacc o user in household: No entered on: 11/06/17 Sex
--- OUTSIDE RECORDS SUMMARY | 2023-11-25 22:19 | XMS_ITS | Continuity of Care Document ---
Author Organization [facility] al Address [address] [place] [address]- Care Team Providers Care Supervisor Central Supply Name Role Phone Bon HOOKS, Jessica Pineda Primary Care Physici an Encounter [facility] Date(s): 09/30/23 - 09/30/[address] [address]- Discharge Disposition: A-D/C Home Attending Physician: Jabier Black MD Admitting Physician: Jabier Black MD Referring Physician: Not on Staff, Referring MD Allergies, Adverse Reactions, Alerts No Known Allergies Immunizations Given and Recorded Vaccine Date Status Refusal Reason SARS-CoV-2 mRNA ([id number]) vax 1 01/02/23 Recorded influenza virus vaccine, [...] Given 4Admin Note: VIS-11/22/2009 5Admin Note: VIS 11/23/08 given 6Admin Note: FluMist VIS (11/06/07) given 7Admin Note: VIS 01/14/09 given 8Admin Note: VIS (06/26/07) given Problem List Condition Confirmation Course Effective Dates Status Health St atus Informant Adolescent idiopathic scoliosis Confirmed Active Chronic constipation Confirmed Active Constipation Confirmed Active Cervical disc herniation Confirmed Active IBS (irritable bowel syndrome) Confirmed Active Well adult exam Confirmed Active Results Radiology Reports * Exam Date Time Procedure Performing Provider Status 09/30/23 6:12 PM Finger 2nd Left Hand Oleksandrdzicka Yolandaa ; Auth (Verified) Notes: (Finger 2nd Left Hand) Reason For Exam: Trauma RESULT: Finger 2nd Left Hand Finger 2nd Left Hand, 3 views Hx of Present Illness: L index finger laceration with kitchen knife. Unsure when last tetnus was. Bleeding controlled on arrival.; Reason: Trauma; Clinical Question(s): Fracture COMPARISON: July 12, 2021. FINDINGS: No fractures or bone lesions. No arthritic changes. Soft tissue swelling and irregularity at the level of the proximal interphalangeal joint of the left index finger compatible with known laceration. No radioopaque foreign body. IMPRESSION: Left index finger soft tissue irregularity compatible with laceration. No foreign body or fracture. WSN: [id number] Ordering Physician: Jabier Black Dictated By: Chacho Rosario MD Dictated Date/Time: 09/30/23 6:28 pm Reviewed By: Chacho Rosario MD Signed By: Chacho Rosario MD Signed Date/Time: 09/30/23 6:28 pm Transcribed By: JOSE Transcribed Date/Time: 09/30/23 6:28 pm Vital Signs Most recent to oldest [Reference Range]: 1 2 Height 164 cm (09/30/23 5:53 PM) Weight 63.0 kg (09/30/23 5:53 PM) Oxygen Saturation [94-100 %] 100 % (09/30/23 5:53 PM) 100 % (09/30/23 5:52 PM) Pulse Rate [55-90 bpm] 82 bpm (09/30/23 5:53 PM) 125 bpm *H* (09/30/23 5:52 PM) Blood Pressure [90-138/55-84 mm Hg] 124/ 76mm Hg (09/30/23 5:53 PM) Respiratory Rate [16-30 br/min] 18 br/mi n (09/30/23 5:53 PM) Temperature [96.8-100.4 DegF] 98.7 DegF (09/30/23 5:53 PM) Mode of Delivery (Oxygen) Room air (09/30/23 5:53 PM) Room air (09/30/23 5:52 PM) Blood pressure sites Arm, right (09/30/23 5:53 PM) Temperature Route Temporal (09/30/23 5:53 PM) Dry Weight 63.0 kg (09/30/23 5:53 PM) Social History Social History Type Response Smoking Status Never (less than 100 in lifetime) entered on: 09/10/23 Sex Note * Ruth Castellano: PERFORM, SIGN, VERIFY Event Display: Patient Education Handout Authored Date: [id number] * Ruth Castellano: PERFORM Event Display: Patient Education Leaflets Authored Date: [id number] Hand Laceration: All Closures ?? [id number] Hand Laceration: All Closures A laceration is a cut through the skin. Deep cuts usually need stitches. Minor cuts may be closed with surgical tape or skin adhesive.?? X-rays may be done if something may have entered the skin through the cut, such as broken glass. You may also be given a tetanus shot if you are not up-to-date on this vaccine and the nature of the cut may lead to tetanus. Home care ??? Follow all directions for taking medicines that your healthcare provider may prescribe. o Your healthcare provider may prescribe an antibiotic. This is to help prevent infection. Take the medicine every day until it's gone, or you are told to stop. You should not have any left over. oYour healthcare provider may prescribe medicine for pain. Know how and when to take this medicine. If your provider did not prescribe pain medicine, you may use jpyc-[id number] pain medicine. If youhave chronic liver or kidney disease, or ever had a stomach ulcer or gastrointestinal bleeding, talk with your healthcare provider before using these medicines. ??? Follow the healthcare provider???s directions on how to care for the cut. ??? Keep the wound clean and dry. Don't get the wound wet until you are told it's OK to do so.??If the bandage gets wet, remove it. Gently pat the wound dry with a clean cloth. Then put on a clean, dry bandage. ??? To help prevent infection, wash your hands with soap and water before and after caring for the wound.? Caring for stitches. Once you no longer need to keep the stitches dry, clean the wound daily. First, remove the bandage. Then wash the area gently with soap and warm water, or as directed by the??healthcare provider. Use a clean, wet cotton swab to loosen and remove any blood or crust that forms. After cleaning, apply a thin layer of antibiotic ointment if advised. Then put on a new bandage unless you are told not to. ??? Caring for skin glue. Don???t put any liquid, ointment, or cream on the wound while the glue is in place. It's OK to briefly shower but don't submerge under water for at least 7 days. Stay away from activities that cause heavy sweating. Protect the wound from sunlight.??Don't scratch, rub, or pick at the adhesive film. Don't place tape directly over the film.??The glue should fall off by itself within 5 to 10 days.??Call your healthcare provider if you have skin blistering or excessive itching. ??? Caring for surgical tape. Keep the area dry. If it gets wet, blot it dry with a clean towel. Surgical tape usually falls off within 7 to 10 days. If it has not fallen off after 10 days, you can take it off yourself. Put mineral oil or petroleum jelly on a cotton ball and gently rub the tape until it's removed. ??? Shower as usual once you can get the wound wet, but don't soak the wound in water. This means no tub baths or swimming until it's fully healed. ??? Keep the wound out of prolonged direct sunlight, especially in the summer months. After the wound heals, continue to stay out of direct sunlight, or use a sunscreen with a high level of protection. Sunburn or sun exposure can increase scarring. ??? Check the wound daily for signs of infection listed below. Even with correct treatment, a wound infection may sometimes occur. ?? Follow-up care Follow up with your healthcare provider, or as advised. If you have stitches, they will have to be removed. ?? When to seek medical advice Call your healthcare provider right away??if any of the following occur: ??? Wound bleeding not controlled by direct pressure ??? Signs of infection, including increasing pain in the wound, increasing wound redness or swelling, or pus or bad odor coming from the wound ??? Fever of??100.4??F (38.??C)??or higher, or as directed by your healthcare provider ??? Chills ??? Stitches come apart or fall out or surgical tape falls off before 7 days ??? Wound edges reopen ??? Wound changes colors ??? Numbness or weakness in the affected hand? Decreased movement of the hand, or an individual fingeror part of a finger ?? Last Reviewed Date: 2021 ?? [id number] [employer]. All rights reserved. This information is not intended as a substitute for professional medical care. Always follow your healthcare professional's instructions. ?? Patient Care team information Care Team Personnel Name: Bon HOOKS, Jessica Pineda Position: [facility] Associate Professional Member Role: PCP Address: Address: [address] [place] [address] Medical Practice [facility] [place] [address]- Care Team Related Persons Name: BRANDON LUJAN Address: home [address] [place], [place] Name: NATO LUJAN Address: home [address] [place], [place] Name: JOSH LUJAN Address: [place] [address] [place] [address] Name: JACOB RAYO Address: home [address] [place] [address] Name: ALISHA BRITO Address: home [address] [place] [address]
--- OUTSIDE RECORDS SUMMARY | 2023-11-25 22:19 | XMS_ITS | Continuity of Care Document ---
Author Organization [facility] al Address [address] [place] [address]- Care Team Providers Care Airway Traffic Controller Name Role Phone Piedad Poole MD Primary Care Physician [phone] Encounter [facility] Date(s): 10/21/21 - 10/21/[address] [address]- Discharge Disposition: A-D/C Home Attending Physician: Fede Null MD Admitting Physician: Fede Null MD Referring Physician: Not on Staff, Referring [...] 3 Refills, Maintenance, 06/23/21 13:13:00 EST, Tablet, [facility]/pharmacy #1230, 1 tablet By Mouth Daily, 163, cm, 05/30/21 16:57:00 EST, Height, 57, kg, 05/30/21 16:57:00 EST, Dry Weight Start Date: 06/23/21 Status: Ordered Diflucan 150 mg oral tablet 1 tablet = 150 mg, By Mouth, Once, # 1 tablet, 1 Refills, Soft Stop, 10/05/21 12:48:00 EDT, [facility]/pharmacy #1230, Partial fill upon patient request if the prescription is for a schedule II opioid drug., 164, cm, 10/05/21 10:00:00 EDT, Height, 61.6, kg,... Start Date: 10/05/21 Status: Ordered Problem List Condition Effective Dates Status Health Status Inform ant Adolescent idiopathic scoliosis(Confirmed) Active Constipation(Confirmed) Active Well adult exam(Confirmed) Active Vital Signs Most recent to oldest [Reference Range]: 1 2 Height 166 cm (10/21/21 12:22 PM) 166 cm (10/21/21 12:20 PM) Weight 61.1 kg (10/21/21 12:22 PM) 61.1 kg (10/21/21 12:20 PM) Oxygen Saturation [94-100 %] 98 % (10/21/21 12:20 PM) Pulse Rate [55-90 bpm] 86 bpm (10/21/21 12:20 PM) Body Mass Index [18.5-24.99] 22.17 (10/21/21 12:20 PM) Blood Pressure [90-138/55-84 mm Hg] 125/ 79mm Hg (10/21/21 12:20 PM) Respiratory Rate [16-30 br/min] 18 br/mi n (10/21/21 12:20 PM) Temperature [96.8-100.4 DegF] 97.8 DegF (10/21/21 12:20 PM) Mode of Delivery (Oxygen) Room air (10/21/21 12:20 PM) Blood pressure sites Arm, left (10/21/21 12:20 PM) Temperature Route Temporal (10/21/21 12:20 PM) Dry Weight 61.1 kg (10/21/21 12:22 PM) 61.1 kg (10/21/21 12:20 PM) Weight Obtained Via Standing scale (10/21/21 12:20 PM) Dry Weight Obtained Via Standing scale (10/21/21 12:20 PM) Social History Social History Type Response Smoking Status Never smoker; Tobacc o user in household: No entered on: 11/06/17 Sex
--- OUTSIDE RECORDS SUMMARY | 2023-11-25 22:19 | XMS_ITS | Continuity of Care Document ---
Author Organization [facility] Address [address] [address]- Care Team Providers Care Ornamental Painter Name Role Phone Piedad Poole MD Primary Care Physician Encounter [facility] Date(s): 03/31/20 - 04/07/20 [facility] [employer] [facility] [address] [address]- Encounter Diagnosis Acute URI(Discharge Diagnosis) - 03/31/20 Attending Physician: Teresa Gao Allergies, Adverse Reactions, [...] physical you are due in January 2020- [phone] we will send a reminder, # 84 tablet, 3 Refills, Maintenance, 09/14/19 11:17:00 EDT, Tablet, [facility]/pharmacy #1230, 1 tablet By Mouth Daily,Instr:Ple... Start Date: 09/14/19 Status: Ordered Problem List Condition Effective Dates Status Health Status Inform ant Adolescent idiopathic scoliosis(Confirmed) Active Constipation(Confirmed) Active Healthy child(Confirmed) Active Neck pain(Confirmed) Active Diagnosis Diagnosis Type Effective Dates Health Status [facility] Informant Acute URI Discharge Diagnosis 03/31/20 Social History Social History Type Response Smoking Status Never smoker; Tobacc o user in household: No entered on: 11/06/17 Sex
--- OUTSIDE RECORDS SUMMARY | 2023-11-25 22:19 | XMS_ITS | Continuity of Care Document ---
Author Organization [facility] Address Unknown Care Team Providers Care Tuft Machine Operator Name Role Phone Zulema DOLL, Piedad Dyson Primary Care Physician Encounter [facility] Date(s): 10/06/21 - 11/05/21 [facility] Allergies, Adverse Reactions, Alerts No Known Allergies [...] 3 Refills, Maintenance, 06/23/21 13:13:00 EST, Tablet, [facility]/pharmacy #1230, 1 tablet By Mouth Daily, 163, cm, 05/30/21 16:57:00 EST, Height, 57, kg, 05/30/21 16:57:00 EST, Dry Weight Start Date: 06/23/21 Status: Ordered Diflucan 150 mg oral tablet 1 tablet = 150 mg, By Mouth, Once, # 1 tablet, 1 Refills, Soft Stop, 10/05/21 12:48:00 EDT, [facility]/pharmacy #1230, Partial fill upon patient request if the prescription is for a schedule II opioid drug., 164, cm, 10/05/21 10:00:00 EDT, Height, 61.6, kg,... Start Date: 10/05/21 Status: Ordered Problem List Condition Effective Dates Status Health Status Inform ant Adolescent idiopathic scoliosis(Confirmed) Active Constipation(Confirmed) Active Well adult exam(Confirmed) Active Social History Social History Type Response Smoking Status Never smoker; Tobacc o user in household: No entered on: 11/06/17 Sex
--- OUTSIDE RECORDS SUMMARY | 2023-11-25 22:19 | XMS_ITS | Continuity of Care Document ---
Author Organization [facility] Address [address] [place] [address]- Care Team Providers Care Assurance Services Manager Health Care Name Role Phone Jessica Crockett NP Primary Care Physici an Encounter [facility] Date(s): 09/11/23 - 10/11/23 [facility] [employer] [facility] [address] [place] [address]- [place] Allergies, Adverse Reactions, Alerts No Known Allergies Immunizations Given and Recorded Vaccine Date Status Refusal Reason SARS-CoV-2 mRNA (cpunsjo-inya-gxjzm) vax 1 01/02/23 Recorded influenza virus vaccine, [...] FluMist VIS (11/06/07) given 7Admin Note: VIS 10/02/09 given 8Admin Note: VIS (06/26/07) given Problem [...] 100 in lifetime) entered on: 09/10/23 Sex Patient Care team information Care Team Personnel Name: Bon TRANSPORTATION PROJECT MANAGER, Jessica Pineda Position: [facility] PCO Associate Professional Member Role: PCP Address: Address: [address] [place] [address] [facility] [place] [address]- Care Team Related Persons Name: BRANDON LUJAN Address: [address] [place] [address] Name: NATO LUJAN Address: [address] [place] [address] Name: JOSH LUJAN Address: [place] [address] Name: JACOB RAYO Address: [address] [place] [address] Name: ALISHA BRITO Address: home [address] [place] [address]
--- OUTSIDE RECORDS SUMMARY | 2023-11-25 22:19 | XMS_ITS | Continuity of Care Document ---
Author Organization [facility] Address [address] [place] [address]- Care Team Providers Care Granite Sandblaster Apprentice Name Role Phone Ramiro Torres DO Primary Care Physician [phone] [facility] Date(s): 06/28/22 - 06/28/[address] [address]- Encounter Diagnosis Acute cervical radiculopathy(Final) - 06/28/22 Discharge Disposition: A-D/C Home Attending Physician: Nicko Kebede MD Admitting Physician: Nicko Kebede MD Referring Physician: Not on Staff, Referring [...] Exam Date Time Procedure Performing Provider Status 06/28/22 2:[address] Cervical Spine W/O Contrast Graham Hirsch; Arsenio (Verified) Notes: (CT Cervical Spine W/O Contrast) Reason For Exam: radicular sx LUE, paresthesia;Radiculopathy Left RESULT: CT Cervical Spine W/O Contrast CT Cervical Spine W/O Contrast Hx of Present Illness: Left chest and left arm pain and numbness x 1 week; Reason: Radiculopathy Left; radicular sx LUE, paresthesia; Clinical Question(s): Fracture Dislocation; FALL months ago, midline C3-5 TTP TECHNIQUE: Spiral CT of the cervical spine without contrast, formatted in 3 planes. Weight-based protocol using automatic tube modulation was used to optimize exposure parameters. RADIATION DOSE PARAMETERS: CTDIvol Body: 6.59 mGy, DLP Body: 135 mGy*cm. COMPARISON: C-spine radiographs 12/27/2020, 12/20/2017 FINDINGS: Spine: No fracture. No acute osseous abnormalities. Straightening of the spine with loss of normal cervical lordosis. The alignment is otherwise maintained. The intervertebral disc spaces are preserved. No significant narrowing of the spinal canal. Nolocked or perched facet. Soft tissues and lung apices: Unremarkable. Clear lung apices. IMPRESSION: No acute traumatic abnormality of the cervical spine. I have personally reviewed the images and I agree with this report. WSN: [id number] Ordering Physician: Nicko Kebede Dictated By: Lynette Harry MD Dictated Date/Time: 06/28/22 2:54 pm Reviewed By: Armando Arias MD Signed By: Armando Arias MD Signed Date/Time: 06/28/22 2:59 pm Transcribed By: JOSE Transcribed Date/Time: 06/28/22 2:44 pm * Exam Date Time Procedure Performing Provider Status 06/28/22 1:20 PM Chest 2 Views Frontal and Lat Kaela Ely; Auth (Verified) Notes: (Chest 2 Views Frontal and Lat) Reason For Exam: Chest Pain;Other: RESULT: Chest 2 Views Frontal and Lat Chest 2 Views Frontal and Lat Hx of Present Illness: Left chest and left arm pain and numbness x 1 week; Reason: Other:; Chest Pain; Clinical Question(s): Other:; Order Comment: 06 28 2022 12:55:15 EDT: not in WR. Triage? - COMPARISON: 04/02/2017 FINDINGS: LINES AND TUBES: None. LUNGS AND PLEURA: The lungs are clear. No pleural effusion. No pneumothorax. HEART, MEDIASTINUM AND MANAV: Normal. BONES AND SOFT TISSUES: Normal. IMPRESSION: Normal. WSN: [id number] Ordering Physician: Jabier Black Dictated By: Armando Arias MD Dictated Date/Time: 06/28/22 1:30 pm Reviewed By: Armando Arias MD Signed By: Armando Arias MD Signed Date/Time: 06/28/22 1:30 pm Transcribed By: JOSE Transcribed Date/Time: 06/28/22 1:28 pm Vital Signs Most recent to oldest [Reference Range]: 1 2 3 Height 165 cm (06/28/22 3:14 PM) 165 cm (06/28/22 12:42 PM) Weight 63 kg (06/28/22 3:14 PM) 63 kg (06/28/22 12:42 PM) Oxygen Saturation [94-100 %] 100 % (06/28/22 3:14 PM) 100 % (06/28/22 12:42 PM) 100 % (06/28/22 12:41 PM) Pulse Rate [55-90 bpm] 70 bpm (06/28/22 3:14 PM) 84 bpm (06/28/22 12:42 PM) 98 bpm *H* (06/28/22 12:41 PM) Body Mass Index [18.5-24.99 kg/m2] 23.14 kg/m2 (06/28/22 3:14 PM) Blood Pressure [90-138/55-84 mm Hg] 109/61mm Hg (06/28/22 3:14 PM) 127/74mm Hg (06/28/22 12:42 PM) Respiratory Rate [16-30 br/min] 18 br/min (06/28/22 3:14 PM) 17 br/min (06/28/22 12:42 PM) 18 br/min (06/28/22 12:41 PM) Temperature [96.8-100.4 DegF] 98.3 DegF (06/28/22 12:42 PM) Mode of Delivery (Oxygen) Room air (06/28/22 3:14 PM) Room air (06/28/22 12:42 PM) Room air (06/28/22 12:41 PM) Blood pressure sites Arm, right (06/28/22 3:14 PM) Temperature Route Temporal (06/28/22 12:42 PM) Dry Weight 63 kg (06/28/22 3:14 PM) 63 kg (06/28/22 12:42 PM) Dry Weight Obtained Via Standing scale (06/28/22 12:42 PM) Height Percentile 60.22 % 1 (06/28/22 3:14 PM) 60.22 % 2 (06/28/22 12:42 PM) Height ZScore 0.26 3 (06/28/22 3:14 PM) 0.26 4 (06/28/22 12:42 PM) Weight Percentile Per Age 67.69 % 5 (06/28/22 3:14 PM) 67.69 % 6 (06/28/22 12:42 PM) BMI Percentile 65.38 7 (06/28/22 3:14 PM) BMI ZScore 0.40 8 (06/28/22 3:14 PM) Weight ZScore 0.46 9 (06/28/22 3:14 PM) 0.46 10 (06/28/22 12:42 PM) 1Result Comment: ^~:!Percentile Source -CDC/WHO 2Result Comment: ^~:!Percentile Source -CDC/WHO 3Result Comment: ^~:!ZScore Source -CDC/WHO 4Result Comment: ^~:!ZScore Source -CDC/WHO 5Result Comment: ^~:!Percentile Source -CDC/WHO 6Result Comment: ^~:!Percentile Source -CDC/WHO 7Result Comment: ^~:!Percentile Source -CDC/WHO 8Result Comment: ^~:!ZScore Source -CDC/WHO 9Result Comment: ^~:!ZScore Source -CDC/WHO 10Result Comment: ^~:!ZScore Source -CDC/WHO Social History Social History Type Response Smoking Status Never smoker; Tobacc o user in household: No entered on: 11/06/17 Sex EKG study * Event Display: ECG 12-Lead Authored Date: Please click on pdf link to open report * Event Display: ECG 12-Lead Authored Date: Ventricular Rate: 82 BPM Atrial Rate: 82 BPM P-R Interval: 134 ms QRS Duration: 86 ms Q-T Interval: 368 ms QTC Calculation(Bazett): 429 ms P Munson: 78 degrees R Munson: 69 degrees T Munson: 58 degrees Normal sinus rhythm Incomplete right bundle branch block Otherwise normal ECG No previous ECGs available Confirmed by CALIXTO LOPEZ MD ([id number]) on 06/28/2022 7:34:39 PM [place]: CALIXTO LOPEZ MD Note * Nicko Kebede MD R: PERFORM Event Display: Patient Education Leaflets Authored Date: Multiple Documents ?? [id number] Neck Sprain or Strain A sudden force that causes turning or bending of the neck can cause a sprain or strain. An example would be the force from a car accident. This can stretch or tear muscles called a strain. It can also stretch or tear ligaments called a sprain. Either of these can cause neck pain. Sometimes neck pain occurs after a simple awkward movement. In either case, muscle spasm is commonly present and contributes to the pain.?? Unless you had a forceful physical injury (for instance, a car accident or fall), X-rays are often not ordered for the initial evaluation of neck pain. If pain continues and doesn't respond to medical treatment, X-rays and other tests may be done later. Home care ??? You may feel more soreness and spasm the first few days after the injury. Rest until symptoms start to improve. ??? When lying down, use a comfortable pillow or a rolled towel that supports the head and keeps the spine in a neutral position. The position of the head should not be tilted forward or backward. ??? Apply an ice pack over the injured area for 15 to 20 minutes every 3 to 6 hours. Do this for the first 24 to 48 hours. To make an ice pack, put ice cubes in a plastic bag that seals at the top. Wrap the bag in a thin towel or cloth before using it. Don???t put ice or an ice pack directly on the skin. After 48 hours, apply heat (warm shower or warm bath) for 15 to 20 minutes several times a day. Or alternate ice and heat. ??? You may use luxq-gyx-dlxhyzk pain medicine to control pain, unless another pain medicine was prescribed. Non- steroidal anti-inflammatory drugs (NSAIDs) like ibuprofen or naproxen may work better than acetaminophen. If you have chronic liver orkidney disease, ever had a stomach ulcer or gastrointestinal bleeding, or take blood thinners, talkwith your healthcare provider before using these medicines. ??? If a soft cervical collar was prescribed, only wear it for periods of increased pain. It should not be worn for more than 3 hours a day, or for longer than 1 to 2 weeks. ?? Follow-up care Follow up with your healthcare provider, or as directed. Physical therapy may be needed. Sometimes fractures don???t show up on the first X-ray. Bruises and sprains can sometimes hurt as much as a fracture. These injuries can take time to heal completely. If your symptoms don???t improveor they get worse, talk with your provider. You may need a repeat X-ray or other tests. If X-rays were taken, you will be told of any new findings that may affect your care. ?? Call 911 Call 911 if you have: ??? Neck swelling, difficulty or painful swallowing ??? Trouble breathing ???Chest pain ?? When to get medical advice Call your healthcare provider right away if any of these occur: ??? Pain gets worse or spreads intoyour arms or legs ??? Weakness or numbness in 1 or both arms or legs ?? Last Reviewed Date: 2021 ?? [id number] [employer]. All rights reserved. This information is not intended as a substitute for professional medical care. Always follow your healthcare professional's instructions. ?? * Delio DOLL, Nicko Jameson: PERFORM Event Display: Patient Education Leaflets Authored Date: [id number] Multiple Documents ?? [id number] Pinched Nerve in the??Neck A pinched nerve in the neck (cervical radiculopathy) is caused when the nerve that goes from the spinal cord to the neck or arm is irritated or has pressure on it. This may be caused by a bulging spinal disk. A spinal disk is the cushion between each spinal bone (vertebrae). Or it may be caused by a narrowing of the spinal joint because of osteoarthritis and wear and tear from repeated injuries. A pinched nerve can cause numbness, tingling, deep aching, or electrical shooting pain from the side of the neck all the way down to the fingers on one side. It can also cause weakness of the musclesthat the nerve controls. A pinched nerve may start after a sudden turning or bending force (such as in a car accident) or after a simple awkward movement. In either case, muscle spasm is commonly present and adds to the pain. Home care Follow these guidelines when caring for yourself at home: ??? Rest and relax the muscles. Use a comfortable pillow that supports your head and keeps your spine in a natural (neutral) position. Your head shouldn???t be tilted forward or backward. A rolled-up towel may help for a custom fit.??When standing or sitting, keep your neck in line with your body. Keep your head up and shoulders down. [place] from activities that need you to move your neck a lot. ??? Use heat and massage to help ease the pain. Take a hot shower or bath. Or use a heating pad. You can also use a cold pack for relief. You can make a cold pack by wrapping a plastic bag of crushed or cubed ice in a thin towel. Try both heat and cold. Use the method that feels best. Do this for 20 minutes several times a day. ??? Use acetaminophen or ibuprofen to control pain, unless another pain medicine was prescribed. If you have chronic liver or kidney disease, talk with your healthcare provider before using these medicines. Also talk with your provider if you???ve had a stomach ulcer or gastrointestinal bleeding. ??? Reduce stress. Stress can make it longer for your pain to go away. ??? Do any exercises or stretches that were given to you as part of your discharge plan. ??? Wear a soft collar, if prescribed. ??? Try physical therapy and massages. ??? Ask about injections near the affected nerve or surgery for a more serious injury. ?? Follow-up care Follow up with your healthcare provider, or as advised. If you have muscle weakness, seek attentionright away. You may need more tests.??Tell your provider about any fever, chills, or weight loss. If X-rays were taken, a radiologist may look at them. You will be told of any new findings that mayaffect your care. ?? When to get medical advice Call your healthcare provider right away if any of the following occur: ??? Pain becomes worse evenafter taking prescribed pain medicine ??? Weakness in the arm or legs ??? Numbness in the arm gets worse ??? Trouble breathing or swallowing ?? Last Reviewed Date: 2022 ?? 0713-2257 [employer]. All rights reserved. This information is not intended as a substitute for professional medical care. Always follow your healthcare professional's instructions. ?? * ANDREASPscooter , QUINTIN S: JAMES Arias MD, Armando Coates: VERIFY Event Display: Result: Authored Date: [id number] Chest 2 Views Frontal and Lat Hx of Present Illness: Left chest and left arm pain and numbness x 1 week; Reason: Other:; Chest Pain; Clinical Question(s): Other:; Order Comment: 06 28 2022 12:55:15 EDT: not in WR. Triage? - COMPARISON: 04/02/2017 FINDINGS: LINES AND TUBES: None. LUNGS AND PLEURA: The lungs are clear. No pleural effusion. No pneumothorax. HEART, MEDIASTINUM AND MANAV: Normal. BONES AND SOFT TISSUES: Normal. IMPRESSION: Normal. WSN: [id number] Ordering Physician: Jabier Black Dictated By: Armando Arias MD Dictated Date/Time: 06/28/22 1:30 pm Reviewed By: Armando Arias MD Signed By: Armando Arias MD Signed Date/Time: 06/28/22 1:30 pm Transcribed By: JOSE Transcribed Date/Time: 06/28/22 1:[address] Cervical spine WO contrast * BHSPowerscribe , CIS S: TRANSCRIBE Armando Arias MD: VERIFY Lynette Harry MD: SIGN Event Display: Result: Authored Date: [id number] CT Cervical Spine W/O Contrast Hx of Present Illness: Left chest and left arm pain and numbness x 1 week; Reason: Radiculopathy Left; radicular sx LUE, paresthesia; Clinical Question(s): Fracture Dislocation; FALL months ago, midline C3-5 TTP TECHNIQUE: Spiral CT of the cervical spine without contrast, formatted in 3 planes. Weight-based protocol using automatic tube modulation was used to optimize exposure parameters. RADIATION DOSE PARAMETERS: CTDIvol Body: 6.59 mGy, DLP Body: 135 mGy*cm. COMPARISON: C-spine radiographs 12/27/2020, 12/20/2017 FINDINGS: Spine: No fracture. No acute osseous abnormalities. Straightening of the spine with loss of normal cervical lordosis. The alignment is otherwise maintained. The intervertebral disc spaces are preserved. No significant narrowing of the spinal canal. Nolocked or perched facet. Soft tissues and lung apices: Unremarkable. Clear lung apices. IMPRESSION: No acute traumatic abnormality of the cervical spine. I have personally reviewed the images and I agree with this report. WSN: [id number] Ordering Physician: Nicko Kebede Dictated By: Lynette Harry MD Dictated Date/Time: 06/28/22 2:54 pm Reviewed By: Armando Arias MD Signed By: Armando Arias MD Signed Date/Time: 06/28/22 2:59 pm Transcribed By: JOSE Transcribed Date/Time: 06/28/22 2:44 pm Patient Care team information Care Team Personnel Name: Ramiro Torres DO Position: Reference Physician Member Role: PCP Address: Address: [address] [place] [address] [address] [place], [place] [address] Name: Nicko Kebede MD Position: [facility] ED Medicine MD Member Role: Admitting Physician Address: Address: [address] [place] [address] [place], [place] [address] Name: Alyson Clay RN Position: [facility] ED RN W/OE and Tasks Member Role: Patient Care Provider Care Team Related Persons Name: BRANDON LUJAN Address: [address] [place] [address] Name: JOSH LUJ[place] Address: [place] [address] Name: JACOB RAYO Address: home [address] [place] [address] Name: ALISHA BRITO Address: home [address] [place] [address] Name: SHON LEDESMA Address: home [address] [place] [address]
--- OUTSIDE RECORDS SUMMARY | 2023-11-25 22:19 | XMS_ITS | Continuity of Care Document ---
Author Organization [facility] Address Unknown Care Team Providers Care Mobile Homes Repairer Name Role Phone Piedad Poole MD Primary Care Physician Encounter [facility] Date(s): 01/13/21 - 02/12/21 [facility] Allergies, Adverse Reactions, Alerts Substance Reaction Severity [...] film, extended release 1 patch, Topically, Daily, Do not cut patch., # 14 patch, 1 Refills, Maintenance, 01/18/21 9:18:00 EDT, Patch, [id number], Partial fill upon patient request if the prescription is for a schedule II opioid drug., 1 patch Topically Daily,x14 day... Start Date: 01/18/21 Stop Date: 02/15/21 Status: Ordered Problem List Condition Effective Dates Status Health Status Inform ant Adolescent idiopathic scoliosis(Confirmed) Active Constipation(Confirmed) Active Well adult exam(Confirmed) Active Social History Social History Type Response Smoking Status Never smoker; Tobacc o user in household: No entered on: 11/06/17 Sex
--- OUTSIDE RECORDS SUMMARY | 2023-11-25 22:19 | XMS_ITS | Continuity of Care Document ---
Author Organization [facility] Address [address] [place] [address]- Care Team Providers Care Civil Process Server Name Role Phone Piedad Poole MD Primary Care Physician Encounter [facility] Date(s): 04/14/20 - 04/14/[address] [address]- Discharge Disposition: A-D/C Home Attending Physician: Mohan [...] physical you are due in January 2020- [phone] we will send a reminder, # 84 tablet, 3 Refills, Maintenance, 09/14/19 11:17:00 EDT, Tablet, [facility]/pharmacy #1230, 1 tablet By Mouth Daily,Instr:Ple... Start Date: 09/14/19 Status: Ordered Problem List Condition Effective Dates Status Health Status Inform ant Adolescent idiopathic scoliosis(Confirmed) Active Constipation(Confirmed) Active Healthy child(Confirmed) Active Neck pain(Confirmed) Active Results Orders for Microbiology Reports Name Date Group A Strep Screen and Culture 0 Microbiology Reports TEST:Group A Strep Screen and Culture STATUS:Unauthenticated BODY SITE: SOURCE:THROAT COLLECTED DATE/TIME:04/14/20 4:36 PM Group A Strep Screen and Culture SPECIMEN DESCRIPTION : THROAT SWAB SPECIAL REQUESTS : NONE DIRECT EXAM : RAPID GROUP A RESULT IS NEGATIVE, REFER TO CULTURE RESULT. REPORT STATUS : PRELIMINARY REPORT Vital Signs Most recent to oldest [Reference Range]: 1 Height 163 cm (04/14/20 4:28 PM) Weight 57.8 kg (04/14/20 4:28 PM) Oxygen Saturation [94-100 %] 97 % (04/14/20 4:28 PM) Pulse Rate [55-90 bpm] 107 bpm *H* (04/14/20 4:28 PM) Blood Pressure [80-130/50-80 mm Hg] 124/ 87mm Hg (04/14/20 4:28 PM) Respiratory Rate [16-30 br/min] 16 br/mi n (04/14/20 4:28 PM) Temperature [96.8-100.4 DegF] 98.2 DegF (04/14/20 4:28 PM) Mode of Delivery (Oxygen) Room air (04/14/20 4:28 PM) Blood pressure sites Arm, right (04/14/20 4:28 PM) Temperature Route Temporal (04/14/20 4:28 PM) Dry Weight 57.8 kg (04/14/20 4:28 PM) Weight Obtained Via Standing scale (04/14/20 4:28 PM) Dry Weight Obtained Via Standing scale (04/14/20 4:28 PM) Social History Social History Type Response Smoking Status Never smoker; Tobacc o user in household: No entered on: 11/06/17 Sex
--- OUTSIDE RECORDS SUMMARY | 2023-11-25 22:19 | XMS_ITS | Continuity of Care Document ---
Author Organization [facility] Address [address] [place] [address]- Care Team Providers Care Public Relations Writer Name Role Phone Piedad Poole MD Primary Care Physician Encounter [facility] Date(s): 10/21/19 - 10/21/[address] [address]- [facility] Discharge Disposition: A-D/C Home Attending Physician: Jayna Tate DO Admitting Physician: Jayna Tate DO Referring Physician: Not on Staff, Referring MD [...] physical you are due in January 2020- [phone] we will send a reminder, # 84 tablet, 3 Refills, Maintenance, 09/14/19 11:17:00 EDT, Tablet, [facility]/pharmacy #1230, 1 tablet By Mouth Daily,Instr:Ple... Start Date: 09/14/19 Status: Ordered Macrobid macrocrystals-monohydrate 100 mg oral capsule 1 capsule = 100 mg, By Mouth, 2 times a day, for 7 days, # 14 capsule, 0 Refills, Acute 10/28/19 14:18:00 EDT, 10/21/19 14:18:00 EDT, [facility]/pharmacy #1230, 163, cm, 10/21/19 13:44:00 EDT, Height, 54.4,kg, 10/21/19 13:44:00 EDT, Dry Weight Start Date: 10/21/19 Stop Date: 10/28/19 Status: Ordered MiraLax = 17 Gm, By [...] 0 Refills, Maintenance, 04/16/19 15:23:00 EST, Tablet, [facility]/pharmacy #1230, 163, cm, 04/16/19 14:55:00 EST, Height, 54.3, kg, 03/07/19 17:15:00 EST, Dry Weight Start Date: 04/16/19 Stop Date: 04/18/19 Status: Ordered Problem List Condition Effective Dates Status Health Status Inform ant Adolescent idiopathic scoliosis(Confirmed) Active Constipation(Confirmed) Active Healthy child(Confirmed) Active Neck pain(Confirmed) Active Vital Signs Most recent to oldest [Reference Range]: 1 Height 163 cm (10/21/19 1:44 PM) Weight 54.4 kg (10/21/19 1:44 PM) Oxygen Saturation [94-100 %] 100 % (10/21/19 1:44 PM) Pulse Rate [55-90 bpm] 75 bpm (10/21/19 1:44 PM) Blood Pressure [80-130/50-80 mm Hg] 121/ 75mm Hg (10/21/19 1:44 PM) Respiratory Rate [16-30 br/min] 16 br/mi n (10/21/19 1:44 PM) Temperature [96.8-100.4 DegF] 98.2 DegF (10/21/19 1:44 PM) Mode of Delivery (Oxygen) Room air (10/21/19 1:44 PM) Dry Weight 54.4 kg (10/21/19 1:44 PM) Weight Obtained Via Standing scale (10/21/19 1:44 PM) Dry Weight Obtained Via Standing scale (10/21/19 1:44 PM) Social History Social History Type Response Smoking Status Never smoker; Tobacc o user in household: No entered on: 11/06/17 Sex
--- OUTSIDE RECORDS SUMMARY | 2023-11-25 22:19 | XMS_ITS | Continuity of Care Document ---
Author Organization [facility] Address Unknown Care Team Providers Care Housekeeper/Laundry Assistant Name Role Phone Zulema DOLL, Piedad Dyson Primary Care Physician Encounter [facility] Date(s): 05/08/21 - 06/07/21 [facility] Allergies, Adverse Reactions, Alerts No Known Allergies [...] 3 Refills, Maintenance, 12/23/20 11:33:00 EDT, Tablet, [facility], 1 tablet By Mouth Daily, 163.5, cm, 12/23/20 10:50:00 EDT, Height, 58.6, kg, 12/23/20 10:50:00 EDT, Dry Weight Start Date: 12/23/20 Status: Ordered Problem List Condition Effective Dates Status Health Status Inform ant Adolescent idiopathic scoliosis(Confirmed) Active Constipation(Confirmed) Active Well adult exam(Confirmed) Active Social History Social History Type Response Smoking Status Never smoker; Tobacc o user in household: No entered on: 11/06/17 Sex
--- OUTSIDE RECORDS SUMMARY | 2023-11-25 22:19 | XMS_ITS | Continuity of Care Document ---
Author Organization [facility] Address [address] [address]- Care Team Providers Care Educational Aid Name Role Phone Zulema DOLL, Piedad Dyson Primary Care Physician [phone] Encounter [facility] Date(s): 10/05/20 - 11/04/20 [facility] [address] [address]- Allergies, Adverse Reactions, Alerts Substance Reaction Severity [...] physical you are due in January 2020- [phone]., # 84 tablet, 3 Refills, Maintenance, 08/23/20 7:38:00 EDT, Tablet, [facility]/pharmacy #1230, 1 tablet By Mouth Daily,Instr:Please call and schedule a... Start Date: 08/23/20 Status: Ordered Problem List Condition Effective Dates Status Health Status Inform ant Adolescent idiopathic scoliosis(Confirmed) Active Constipation(Confirmed) Active Well adult exam(Confirmed) Active Social History Social History Type Response Smoking Status Never smoker; Tobacc o user in household: No entered on: 11/06/17 Sex
--- OUTSIDE RECORDS SUMMARY | 2023-11-25 22:19 | XMS_ITS | Continuity of Care Document ---
Author Organization [facility] [employer] Address 83 [facility] [address] [place] [address]- Care Team Providers Care Healthcare Account Manager Name Role Phone Piedad Poole MD Primary Care Physician [phone] Encounter [facility] Date(s): 10/15/19 - 11/14/19 [facility] [address] [address]- [facility] Allergies, Adverse Reactions, Alerts Substance Reaction [...] physical you are due in January 2020- [phone] we will send a reminder, # 84 tablet, 3 Refills, Maintenance, 09/14/19 11:17:00 EDT, Tablet, [facility], 1 tablet By Mouth Daily,Instr:Ple... Start Date: 09/14/19 Status: Ordered MiraLax = 17 Gm, By Mouth, Daily, PRN Constipation, 0 Refills, Maintenance, 11/27/17 10:52:09 EST Start Date: 03/11/17 Status: Ordered [...] 0 Refills, Maintenance, 04/16/19 15:23:00 EST, Tablet, [facility]/pharmacy #1230, 163, cm, 04/16/19 14:55:00 EST, [...]
--- OUTSIDE RECORDS SUMMARY | 2023-11-25 22:19 | XMS_ITS | Continuity of Care Document ---
Author Organization [facility] [employer] Address [address] [address]- Care Team Providers Care Compress Machine Operator Name Role Phone Zulema DOLL, Piedad Dyson Primary Care Physician [phone] Encounter [facility] Date(s): 10/07/20 - 11/06/20 [facility] [employer] [address] [address]- Allergies, Adverse Reactions, Alerts Substance Reaction Severity [...] physical you are due in January 2020- [phone]., # 84 tablet, 3 Refills, Maintenance, 08/23/20 7:38:00 EDT, Tablet, [facility]/pharmacy #1230, 1 tablet By Mouth Daily,Instr:Please call and schedule a... Start Date: 08/23/20 Status: Ordered Problem List Condition Effective Dates Status Health Status Inform ant Adolescent idiopathic scoliosis(Confirmed) Active Constipation(Confirmed) Active Well adult exam(Confirmed) Active Social History Social History Type Response Smoking Status Never smoker; Tobacc o user in household: No entered on: 11/06/17 Sex
--- OUTSIDE RECORDS SUMMARY | 2023-11-25 22:19 | XMS_ITS | Continuity of Care Document ---
Author Organization [facility] Address [address] [place] [address]- Care Team Providers Care Timber Sprinkler Name Role Phone Zulema DOLL, Piedad Dyson Primary Care Physician [phone] Encounter [facility] Date(s): 01/19/22 - 02/18/22 [facility] [address] [place] [address]- [place] Allergies, Adverse Reactions, Alerts No Known [...] on: 11/06/17 Sex Patient Care team information Personnel Name: Zulema DOLL, Piedad Dyson Address: Address: [address] [place] [address], [address] [facility] [place], [place] [address]
--- OUTSIDE RECORDS SUMMARY | 2023-11-25 22:19 | XMS_ITS | Continuity of Care Document ---
Author Organization [facility] [employer] Address [address] [address]- Care Team Providers Care Decorator Mannequin Name Role Phone Piedad Poole MD Primary Care Physician [phone] Encounter [facility] Date(s): 10/19/19 - 11/18/19 [facility] [email or web address] [facility] [address] [address]- [facility] Allergies, Adverse Reactions, Alerts Substance Reaction Severity [...] physical you are due in January 2020- [phone] we will send a reminder, # 84 tablet, 3 Refills, Maintenance, 09/14/19 11:17:00 EDT, Tablet, [facility]/pharmacy #1230, 1 tablet By Mouth Daily,Instr:Ple... Start Date: 09/14/19 Status: Ordered doxycycline hyclate 100 mg oral capsule 1 capsule = 100 mg, By Mouth, 2 times a day, for 7 days, # 14 capsule, 0 Refills, Acute 11/22/19 16:25:00 EDT, 11/15/19 16:25:00 EDT, Capsule, [facility], 167, cm, 11/15/19 16:17:00 EDT, Height, 54.2, kg, 11/15/19 16:17:00 EDT, Dry Weight Start Date: 11/15/19 Stop Date: 11/22/19 Status: Ordered MiraLax = 17 Gm, By [...] Date: 11/28/18 Stop Date: 02/26/19 Status: Ordered predniSONE 10 mg oral tablet 1 tablet = 10 mg, By Mouth, Daily, Start with 3 tabs once a day for 3 days and then taper by one tab every 3 days for a total of 9 days, # 18 tablet, 0 Refills, Maintenance, 11/15/19 16:25:00 EDT, Tablet, [facility], 167, cm, 11/15/19 16:17:00... Start Date: 11/15/19 Status: Ordered Zofran 4 mg oral tablet [...]
--- OUTSIDE RECORDS SUMMARY | 2023-11-25 22:19 | XMS_ITS | Continuity of Care Document ---
Author Organization [facility] Address [address] [place] [address]- Care Team Providers Care Guide Plant Name Role Phone Jessica Crockett NP Primary Care Physici an Encounter [facility] Date(s): 08/20/23 - 09/19/23 [facility] [employer] [place] [facility] [address] [place] [address]- [place] Allergies, Adverse Reactions, Alerts No Known Allergies Immunizations Given and Recorded Vaccine Date Status Refusal Reason SARS-CoV-2 mRNA (klpjvkh-kvqh-tqrjk) vax 1 01/02/23 Recorded influenza virus vaccine, [...] Care team information Care Team Personnel Name: Bno STUDENT EDUCATION SPECIALIST, Jessica Pineda Position: [facility] PCO Associate Professional Member Role: PCP Address: Address: [address] [place] [address] [place] [address]- Care Team Related Persons Name: BRANDON LUJAN Address: [address] [place] [address] Name: NATO LUJAN Address: [address] [place] [address] Name: JOSH LUJAN Address: [place] [address] Name: JACOB RAYO Address: home [address] [place] [address] Name: ALISHA BRITO Address: home [address] [place] [address]
--- OUTSIDE RECORDS SUMMARY | 2023-11-25 22:19 | XMS_ITS | Continuity of Care Document ---
Author Organization [facility] [employer] Address [address] [address]- Care Team Providers Care Business Intelligence Architect Name Role Phone Piedad Poole MD Primary Care Physician Encounter [facility] Date(s): 04/12/20 - 05/12/20 [facility] [employer] [facility] [address] [address]- Allergies, Adverse Reactions, Alerts Substance Reaction Severity [...] physical you are due in January 2020- [phone] we will send a reminder, # 84 [...]
--- OUTSIDE RECORDS SUMMARY | 2023-11-25 22:19 | XMS_ITS | Continuity of Care Document ---
Author Organization [facility] [employer] Address [address] [address]- Care Team Providers Care General Practitioner Name Role Phone Zulema DOLL, Piedad Dyson Primary Care Physician [phone] Encounter [facility] Date(s): 09/28/20 - 10/28/20 [facility] [employer] [address] [address]- Allergies, Adverse Reactions, Alerts Substance Reaction Severity [...] physical you are due in January 2020- [phone]., # 84 tablet, 3 Refills, Maintenance, 08/23/20 7:38:00 EDT, Tablet, [facility]/pharmacy #1230, 1 tablet By Mouth Daily,Instr:Please call and schedule a... Start Date: 08/23/20 Status: Ordered Problem List Condition Effective Dates Status Health Status Inform ant Adolescent idiopathic scoliosis(Confirmed) Active Constipation(Confirmed) Active Well adult exam(Confirmed) Active Social History Social History Type Response Smoking Status Never smoker; Tobacc o user in household: No entered on: 11/06/17 Sex
--- OUTSIDE RECORDS SUMMARY | 2023-11-25 22:19 | XMS_ITS | Continuity of Care Document ---
Author Organization [facility] [employer] Address Unknown Care Team Providers Care Infrastructure Director Name Role Phone Piedad Poole MD Primary Care Physician [phone] Encounter [facility] Date(s): 07/05/21 - 08/04/21 [facility] Attending Physician: Admtr, ArDave Admitting Physician: Admtr, Ar8 Referring Physician: Admtr, Ar8 Allergies, Adverse Reactions, Alerts No Known Allergies [...] Dry Weight Start Date: 06/23/21 Status: Ordered Problem List Condition Effective Dates Status Health Status Inform ant Adolescent idiopathic scoliosis(Confirmed) Active Constipation(Confirmed) Active Well adult exam(Confirmed) Active Social History Social History Type Response Smoking Status Never smoker; Tobacc o user in household: No entered on: 11/06/17 Sex
--- OUTSIDE RECORDS SUMMARY | 2023-11-25 22:19 | XMS_ITS | Continuity of Care Document ---
Author Organization [facility] Address Unknown Care Team Providers Care Blacksmith Farm Name Role Phone Zulema DOLL, Piedad Dyson Primary Care Physician Encounter [facility] Date(s): 01/19/21 - 02/18/21 [facility] Attending Physician: Alex Sharpe Admitting Physician: Alex Sharpe Referring Physician: AdmtrAlex Allergies, Adverse Reactions, Alerts Substance Reaction Severity [...] 1 Refills, Maintenance, 01/18/21 9:18:00 EDT, Patch, [facility]/pharmacy #1230, Partial fill upon patient [...]
--- OUTSIDE RECORDS SUMMARY | 2023-11-25 22:19 | XMS_ITS | Continuity of Care Document ---
Author Organization [facility] [employer] Address [address] [address]- Care Team Providers Care Senior Staff Specialized Employment Name Role Phone Piedad Poole MD Primary Care Physician Encounter [facility] Date(s): 10/24/20 - 10/31/20 [facility] [employer] [address] [address]- Encounter Diagnosis Pharyngitis(Discharge Diagnosis) - 10/29/20 Attending Physician: George Wagner MD Referring Physician: [...] 6 01/31/09 Given Varicella Virus Vaccine 7 2/10/09 Given Varicella Virus Vaccine 04/04/04 Given Measles/Mumps/Rubella [...] physical you are due in January 2020- [phone]., # 84 tablet, 3 Refills, Maintenance, 08/23/20 7:38:00 EDT, Tablet, [facility], 1 tablet By Mouth Daily,Instr:Please call and schedule a... Start Date: 08/23/20 Status: Ordered Problem List Condition Effective Dates Status Health Status Inform ant Adolescent idiopathic scoliosis(Confirmed) Active Constipation(Confirmed) Active Well adult exam(Confirmed) Active Diagnosis Diagnosis Type Effective Dates Health Status Clini latrice Service Informant Pharyngitis Discharge Diagnosis 10/29/20 Social History Social History Type Response Smoking Status Never smoker; Tobacc o user in household: No entered on: 11/06/17 Sex
--- OUTSIDE RECORDS SUMMARY | 2023-11-25 22:19 | XMS_ITS | Continuity of Care Document ---
Author Organization [facility] [employer] Address [address] [address]- Care Team Providers Care Big Data Admin Name Role Phone Piedad Poole MD Primary Care Physician Encounter [facility] Date(s): 01/01/20 - 01/08/20 [facility] [address] [address]- [facility] Attending Physician: Piedad Poole MD Allergies, Adverse [...] physical you are due in January 2020- [phone] we will send a reminder, # 84 tablet, 3 Refills, Maintenance, 09/14/19 11:17:00 EDT, Tablet, [facility]/pharmacy #1230, 1 tablet By Mouth Daily,Instr:Ple... [...]
--- OUTSIDE RECORDS SUMMARY | 2023-11-25 22:19 | XMS_ITS | Continuity of Care Document ---
Author Organization [facility] Address [address] [place] [address]- Care Team Providers Care Armor Reconnaissance Vehicle Driver Name Role Phone Jessica Crockett NP Primary Care Physici an Encounter [facility] Date(s): 09/10/23 - 10/10/23 [facility] [address] [place] [address]- [place] Allergies, Adverse Reactions, Alerts No Known Allergies Immunizations Given and Recorded Vaccine Date Status Refusal Reason SARS-CoV-2 mRNA (yvlzenk-mawo-cpzib) vax 1 01/02/23 Recorded influenza virus vaccine, [...] team information Care Team Personnel Name: Bon MOLECULAR GENETIC PATHOLOGIST, Jessica Pineda Position: [facility] PCO Associate Professional Member Role: PCP Address: Address: [address] [place] [address] [facility] [place] [address]- Care Team Related Persons Name: BRANDON LUJAN Address: [address] [place] [address] Name: NATO LUJAN Address: [address] [place] [address] Name: JOSH LUJAN Address: [place] [address] Name: JACOB RAYO Address: home [address] [place] [address] Name: ALISHA BRITO Address: home [address] [place] [address]
--- OUTSIDE RECORDS SUMMARY | 2023-11-25 22:20 | XMS_ITS | Continuity of Care Document ---
Author Organization [facility] [employer] Address Unknown Care Team Providers Care Door Furring Installer Name Role Phone Zulema DOLL, Piedad Dyson Primary Care Physician Encounter [facility] [id number] Date(s): 07/05/21 - 07/12/21 [facility] Circle Cardiovascular Imagings Encounter Diagnosis Rash(Discharge Diagnosis) - 07/06/21 Finger fracture(Discharge Diagnosis) - 07/06/21 Attending Physician: Erin Lang MD Allergies, Adverse Reactions, Alerts No Known [...] Diagnosis Diagnosis Type Effective Dates Health Status Cl inical Service Informant Rash Discharge Diagnosis 07/06/21 Finger fracture Discharge Diagnosis 07/06/21 Vital Signs Most recent to oldest [Reference Range]: 1 Height 163.6 cm (07/05/21 3:03 PM) Weight 58.9 kg (07/05/21 3:03 PM) Oxygen Saturation [94-100 %] 99 % (07/05/21 3:03 PM) Pulse Rate [55-90 bpm] 87 bpm (07/05/21 3:03 PM) Body Mass Index [18.5-24.99] 22.01 (07/05/21 3:03 PM) Blood Pressure [71-110/30-71 mm Hg] 110/ 70mm Hg (07/05/21 3:03 PM) Mode of Delivery (Oxygen) Room air (07/05/21 3:03 PM) Blood pressure sites Arm, right (07/05/21 3:03 PM) Dry Weight 58.9 kg (07/05/21 3:03 PM) Weight Obtained Via Standing scale (07/05/21 3:03 PM) Dry Weight Obtained Via Standing scale (07/05/21 3:03 PM) Social History Social History Type Response Smoking Status Never smoker; Tobacc o user in household: No entered on: 11/06/17 Sex
--- OUTSIDE RECORDS SUMMARY | 2023-11-25 22:20 | XMS_ITS | Continuity of Care Document ---
Author Organization [facility] Address [address], [address] [place] [address]- Care Team Providers Care Retail Clerk Name Role Phone Piedad Poole MD Primary Care Physician Encounter [facility] Date(s): 04/16/19 - 04/26/19 [facility] [address], [facility] [address] [place], [place] [address] Attending Physician: AdmAlex pineda Admitting Physician: AdmtrAlex Referring Physician: Admtr, ArDave Allergies, Adverse Reactions, Alerts Substance Reaction Severity [...]
--- OUTSIDE RECORDS SUMMARY | 2023-11-25 22:20 | XMS_ITS | Continuity of Care Document ---
Author Organization [facility] Address Unknown Care Team Providers Care Knowledge Analyst Name Role Phone Piedad Poole MD Primary Care Physician Encounter [facility] Date(s): 06/22/21 - 07/22/21 [employer] Allergies, Adverse Reactions, Alerts No Known Allergies [...] 3 Refills, Maintenance, 06/23/21 13:13:00 EST, Tablet, [facility]/pharmacy #1230, 1 tablet By Mouth Daily, 163, [...]
--- OUTSIDE RECORDS SUMMARY | 2023-11-25 22:20 | XMS_ITS | Continuity of Care Document ---
Author Organization [facility] Address [address] [place] [address]- Care Team Providers Care Measurement Advisor Name Role Phone Bon HOOKS, Jessica Pineda Primary Care Physici an Encounter [facility] Date(s): 09/10/23 - 09/17/23 [facility] [place] [address]- [place] Encounter Diagnosis Encounter to establish care(Discharge Diagnosis) - 09/10/23 Chronic constipation(Discharge Diagnosis) - 09/10/23 Cervical disc herniation(Discharge Diagnosis) - 09/10/23 Cervical cancer screening(Discharge Diagnosis) - 09/10/23 Attending Physician: Bon HOOKS, Jessica Pineda Allergies, Adverse Reactions, Alerts No Known Allergies Immunizations Given and Recorded Vaccine Date Status Refusal Reason SARS-CoV-2 mRNA (crlrsvo-cjel-lvjwp) vax 1 01/02/23 Recorded influenza virus vaccine, inactivated 01/02/23 Chicho rded influenza virus vaccine, inactivated 03/20/22 Chicho rded influenza virus vaccine, inactivated 01/15/19 Give n influenza virus vaccine, inactivated 02/14/17 Chicho rded influenza virus vaccine, inactivated 03/15/15 Chicho rded influenza virus vaccine, inactivated 02/05/13 Cihcho rded influenza virus vaccine, inactivated 03/25/07 Give [...] Confirmed Active Well adult exam Confirmed Active Diagnosis Diagnosis Type Effective Dates Health Status Clinical Service Informant Encounter to establish care Discharge Diagnosis 09/10/23 Chronic constipation Discharge Diagnosis 09/10/23 Cervical disc herniation Discharge Diagnosis 09/10/23 Cervical cancer screening Discharge Diagnosis 09/10/23 Procedures Procedure Date Related Diagnosis Body Site Status Tooth extraction, multiple Completed Vital Signs Most recent to oldest [Reference Range]: 1 Height 165 cm (09/10/23 10:18 AM) Weight 62.9 kg (09/10/23 10:18 AM) Oxygen Saturation [94-100 %] 98 % (09/10/23 10:18 AM) Pulse Rate [55-90 bpm] 73 bpm (09/10/23 10:18 AM) Body Mass Index [18.5-24.99 kg/m2] 23.1 kg/m2 (09/10/23 10:18 AM) Blood Pressure [90-138/55-84 mm Hg] 110/ 64mm Hg (09/10/23 10:18 AM) Temperature [96.8-100.4 DegF] 98.4 DegF (09/10/23 10:18 AM) Mode of Delivery (Oxygen) Room air (09/10/23 10:18 AM) Blood pressure sites Arm, right (09/10/23 10:18 AM) Temperature Route Temporal (09/10/23 10:18 AM) Weight Obtained Via Standing scale (09/10/23 10:18 AM) Social History Social History Type Response Smoking Status Never (less than 100 in lifetime) entered on: 09/10/23 Sex Note * Taisha Jean: PERFORM Event Display: Patient Education/Instruction Authored Date: [id number] Ambulatory Adult Visit Summary [facility] [address] [place] [address] Name: KRISTINE LUJAN : 2000?? Visit: 09/10/2023 10:11?? Ambulatory Visit Instructions ?? Your Care Team Primary Care Provider Bon HOOKS, Jessica Pineda? This Visit Provider Bon HOOKS, Jessica Pineda Your Diagnosis Encounter to establish care Chronic constipation Cervical disc herniation Cervical cancer screening Chronic constipation Vitals Signs Temperature: 98.4 DegF Height: 165 cm Pulse Rate: 73 bpm Weight: 62.9 kg Systolic Blood Pressure: 110 mm Hg Body Mass Index: 23.1 kg/m2 Diastolic Blood Pressure: 64 mm Hg Body surface area: 1.7 Oxygen Saturation: 98 % ?? Medications and Immunizations Administered Medications Given During Visit No medications given during this visit.?? Allergies (NKA means No Known Allergies) NKA Common Emergency Awareness Tips IS IT A STROKE? Act FAST and Check for these signs: FACE Does the face look uneven? ARM Does one arm drift down? SPEECH Does their speech sound strange? TIME Call at any sign of stroke ?? Heart Attack Signs Chest discomfort: Most heart attacks involve discomfort in the center of the chest and lasts more than a few minutes, or goes away and comes back. It can feel like uncomfortable pressure, squeezing, fullness or pain. Discomfort in upper body: Symptoms can include pain or discomfort in one or both arms, back, neck, jaw or stomach. Shortness of breath: With or without discomfort. Other signs: Breaking out in a cold sweat, nausea, or lightheaded. Remember, MINUTES DO MATTER. If you experience any of these heart attack warning signs, call to get immediate medical attention! ?? Smoking can increase your chances of developing chronic health problems and can cause harmful effects to other family members in your house. If you smoke, you are strongly encouraged to quit. Please call [employer] Link at [phone] or 5-762-870Nosto ([phone]) or log in to [email or web address] for referrals to smoking cessation programs. ?? The National Suicide Prevention Hotline is available 05/11 if you or someone you know needs to find a reason to keep living. By calling 5-394-101009-121-mnfv (5290) you'll be connected to a skilled, trained counselor at a crisis center in your area. [facility] Health Portal You can view and manage your care through the patient portal or by using a health care lilo of your choosing. [employer] is a website that allows you to securely view your medical information including your hospital discharge summary, office visit summaries, medications and follow-up visits. You can also request appointments, renew medications, and request access to your medical information using a health care lilo of your choosing, or just ask a question. You can enroll at [email or web address] or register during your next office visit. [facility], in keeping with [facility] guidance, no longer requires face masks for staff, patientsor visitors in most situations. Similiar to time spent indoors at other locations, there is the chance that you were exposed to repiratory viruses during your time with us (such as flu or COVID-19). If you develop symptoms concerning for a viral respiratory infection, please seek testing (and treatment if indicated) from your medical provider or home test kit. ?? Disclaimer: The information provided is of a general nature and is intended to be used in conjunction with the recommendations and advice of your health care practitioner. Every effort has been made to ensure that the information provided is accurate and complete at the time it is provided to you however, as your needs change, or, as new information becomes available, different or additional instructions may be required. ?? If you have questions, please consult with your primary care provider or pharmacist, as appropriate. This information is not intended to serve as substitution for assessment and evaluation by a qualified health care provider. If you do not have a primary care provider, you may find a [facility] provider by calling [facility] [employer] Link at [phone]. Patient Care team information Care Team Personnel Name: Jessica Crockett NP Position: [facility] PCO Associate Professional Member Role: PCP Address: Address: [address] [place] [address] Medical Practice [facility] [place], [place] - Care Team Related Persons Name: BRANDON LUJAN Address: home [address] [place], [place] Name: NATO LUJAN Address: [address] [place] [address] Name: JOSH LUJAN Address: [place] [address] Name: JACOB RAYO Address: home [address] [place] [address] Name: ALISHA BRITO Address: home [address] [place] [address]
--- OUTSIDE RECORDS SUMMARY | 2023-11-25 22:20 | XMS_ITS | Continuity of Care Document ---
Author Organization [facility] Address [address] [place] [address]- Care Team Providers Care Sloop Captain Name Role Phone Bon HOOKS, Jessica Pineda Primary Care Physici an Encounter [facility] Date(s): 10/07/23 - 10/07/[address] [address]- Discharge Disposition: A-D/C Home Attending Physician: Jabier Black MD Admitting Physician: Jabier Black MD Referring Physician: Not on Staff, Referring MD Allergies, Adverse Reactions, Alerts No Known Allergies Immunizations Given and Recorded Vaccine Date Status Refusal Reason SARS-CoV-2 mRNA ([id number]) vax 1 01/02/23 Recorded influenza virus vaccine, [...] recent to oldest [Reference Range]: 1 2 Oxygen Saturation [94-100 %] 100 % (10/07/23 1:02 PM) 100 % (10/07/23 12:46 PM) Pulse Rate [55-90 bpm] 66 bpm (10/07/23 1:02 PM) 77 bpm (10/07/23 12:46 PM) Blood Pressure [90-138/55-84 mm Hg] 118/ 75mm Hg (10/07/23 1:02 PM) Respiratory Rate [16-30 br/min] 16 br/mi n (10/07/23 1:02 PM) Temperature [96.8-100.4 DegF] 98.3 DegF (10/07/23 1:02 PM) Mode of Delivery (Oxygen) Room air (10/07/23 1:02 PM) Room air (10/07/23 12:46 PM) Blood pressure sites Arm, left (10/07/23 1:02 PM) Social History Social History Type Response Smoking Status Never (less than 100 in lifetime) entered on: 09/10/23 Sex Patient Care team information Care Team Personnel Name: Bon HOOKS, Jessica Pineda Position: [facility] PCO Associate Professional Member Role: PCP Address: Address: [address] [place] [address] Medical [facility] [place] [address]- Care Team Related Persons Name: BRANDON LUJAN Address: [address] [place] [address] Name: NATO LUJAN Address: home [address] [place], [place] Name: JOSH LUJAN Address: [place] [address] Name: JACOB RAYO Address: home [address] [place] [address] Name: ALISHA BRITO Address: home [address] [place] [address]
--- OUTSIDE RECORDS SUMMARY | 2023-11-25 22:20 | XMS_ITS | Continuity of Care Document ---
Author Organization [facility] Address [address] [place] [address]- Care Team Providers Care Beveling And Edging Machine Operator Name Role Phone Piedad Poole MD Primary Care Physician Encounter [facility] Date(s): 08/09/21 - 09/08/21 [facility] [address] [place] [address]- Attending Physician: Alex Sharpe Admitting Physician: AdmtrAlex Referring Physician: Admtr, Ar8 [...] 09/12/10 Given influenza virus vaccine, live 3 12/8/10 Given influenza virus vaccine, live 4 01/31/09 [...]
--- OUTSIDE RECORDS SUMMARY | 2023-11-25 22:20 | XMS_ITS | Continuity of Care Document ---
Author Organization [facility] [employer] Address [address] [facility] [address] [place] [address]- Care Team Providers Care Taxonomist Name Role Phone Piedad Poole MD Primary Care Physician Encounter [facility] Date(s): 10/15/19 - 11/14/19 [facility] [address] [address]- [facility] Allergies, Adverse Reactions, Alerts Substance Reaction Severity [...] physical you are due in January 2020- [phone] we will send a reminder, # 84 [...] 0 Refills, Maintenance, 04/16/19 15:23:00 EST, Tablet, [facility]/pharmacy #1230, 163, cm, 04/16/19 14:55:00 EST, Height, [...]
--- OUTSIDE RECORDS SUMMARY | 2023-11-25 22:20 | XMS_ITS | Continuity of Care Document ---
Author Organization [facility] [employer] Address [address] [address]- Care Team Providers Care Field Sales Engineer Name Role Phone Piedad Poole MD Primary Care Physician Encounter [facility] Date(s): 09/06/20 - 09/13/20 [facility] [address] [address]- Attending Physician: Piedad Poole MD Allergies, Adverse [...] physical you are due in January 2020- [phone]., # 84 tablet, 3 Refills, Maintenance, 08/23/20 [...]
--- OUTSIDE RECORDS SUMMARY | 2023-11-25 22:20 | XMS_ITS | Continuity of Care Document ---
Author Organization [facility] Address [address] [place] [address]- Care Team Providers Care Caddy Name Role Phone Bon HOOKS, Jessica Pineda Primary Care Physici an Encounter [facility] Date(s): 10/24/23 - 11/23/23 [facility] [address] [place] [address]- Allergies, Adverse Reactions, Alerts No Known Allergies Immunizations Given and Recorded Vaccine Date Status Refusal Reason SARS-CoV-2 mRNA (qfqopyl-[id number]-qfhmy) vax 1 01/02/23 Recorded influenza virus vaccine, [...] Personnel Name: Bon HOOKS, Jessica Pineda Position: S PCO Associate Professional Member Role: PCP Address: Address: [address] [place] [address] [place] [address]- Care Team Related Persons Name: BRANDON LUJAN Address: home [address] [place] [address] Name: NATO LUJAN Address: [address] [place] [address] Name: JOSH LUJAN Address: [place] [address] Name: JACOB RAYO Address: home [address] [place] [address] Name: ALISHA BRITO Address: home [address] [place] [address]
--- OUTSIDE RECORDS SUMMARY | 2023-11-25 22:20 | XMS_ITS | Continuity of Care Document ---
Author Organization [facility] Address Unknown Care Team Providers Care Safety Engineer Pressure Vessels Name Role Phone Piedad Poole MD Primary Care Physician Encounter [facility] Date(s): 01/19/21 - [facility] Attending Physician: Not on Staff, Attending MD Referring Physician: Tere Lopez CNM Allergies, Adverse Reactions, Alerts Substance Reaction Severity [...] oldest [Reference Range]: 1 Height 163.8 cm (01/19/21 4:10 PM) Weight 60.2 kg (01/19/21 4:10 PM) Body Mass Index [18.5-24.99] 22.44 (01/19/21 4:10 PM) Blood Pressure [71-110/30-71 mm Hg] 129/ 85mm Hg *H* (01/19/21 4:10 PM) Social History Social History Type Response Smoking Status Never smoker; Tobacc o user in household: No entered on: 11/06/17 Sex
--- OUTSIDE RECORDS SUMMARY | 2023-11-25 22:20 | XMS_ITS | Continuity of Care Document ---
Author Organization [facility] Address [address] [place] [address]- Care Team Providers Care Aircraft Quality Control Inspector Name Role Phone Piedad Poole MD Primary Care Physician [phone] Encounter [facility] Date(s): 02/19/20 - 02/19/[address] [address]- Discharge Disposition: A-D/C Home Attending Physician: Louie Portillo MD Admitting Physician: Louie Portillo MD Referring Physician: Not on Staff, Referring [...] (06/26/07) given 8Result Comment: duplicate entry Medications amoxicillin 500 mg oral capsule 1 capsule = 500 mg, By Mouth, 3 times a day, for 10 days, # 29 capsule, 0 Refills, Acute 02/29/20 17:04:00 EST, 02/19/20 17:04:00 EST, Capsule, [facility]/pharmacy #1230, 165, cm, 02/19/20 16:15:00 EST, Height, 54.5, kg, 02/19/20 16:15:00 EST, Dry Weight Start Date: 02/19/20 Stop Date: 02/29/20 Status: Ordered Aviane 100 mcg-20 mcg oral tablet 1 tablet, By Mouth, Daily, Please call and schedule a physical you are due in January 2020- [phone] we will send a reminder, # 84 [...] Date Group A Strep Screen and Culture 02/19/20 Microbiology Reports TEST:Group A Strep Screen and Culture STATUS:Unauthenticated BODY SITE: SOURCE:THROAT COLLECTED DATE/TIME:02/19/20 4:00 PM Group A Strep Screen and Culture SPECIMEN DESCRIPTION : THROAT SWAB SPECIAL REQUESTS : NONE DIRECT EXAM : RAPID GROUP A RESULT IS NEGATIVE, REFER TO CULTURE RESULT. REPORT STATUS : PRELIMINARY REPORT Vital Signs Most recent to oldest [Reference Range]: 1 2 Height 165 cm (02/19/20 4:14 PM) Weight 54.5 kg (02/19/20 4:14 PM) Oxygen Saturation [94-100 %] 99 % (02/19/20 5:22 PM) 99 % (02/19/20 4:14 PM) Pulse Rate [55-90 bpm] 89 bpm (02/19/20 5:22 PM) 94 bpm *H* (02/19/20 4:14 PM) Blood Pressure [80-130/50-80 mm Hg] 114/ 76mm Hg (02/19/20 4:14 PM) Respiratory Rate [16-30 br/min] 17 br/mi n (02/19/20 5:22 PM) 17 br/min (02/19/20 4:14 PM) Temperature [96.8-100.4 DegF] 98.1 DegF (02/19/20 4:14 PM) Temperature Route Oral (02/19/20 4:14 PM) Dry Weight 54.5 kg (02/19/20 4:14 PM) Weight Obtained Via Patient/family state d (02/19/20 4:14 PM) Social History Social History Type Response Smoking Status Never smoker; Tobacc o user in household: No entered on: 11/06/17 Sex
--- OUTSIDE RECORDS SUMMARY | 2023-11-25 22:20 | XMS_ITS | Continuity of Care Document ---
Author Organization [facility] Address Unknown Care Team Providers Care Baton Twirler Name Role Phone Piedad Poole MD Primary Care Physician [phone] [facility] Date(s): 10/05/21 - 11/04/21 [facility] Attending Physician: AdmtrAlex Admitting Physician: Admtr, Alex Referring Physician: Admtr, Ar8 Allergies, Adverse Reactions, [...] 3 Refills, Maintenance, 06/23/21 13:13:00 EST, Tablet, [facility]/pharmacy #1230, 1 tablet By Mouth Daily, 163, cm, 05/30/21 16:57:00 EST, Height, 57, kg, 05/30/21 16:57:00 EST, Dry Weight Start Date: 06/23/21 Status: Ordered Diflucan 150 mg oral tablet 1 tablet = 150 mg, By Mouth, Once, # 1 tablet, 1 Refills, Soft Stop, 10/05/21 12:48:00 EDT, [facility]/pharmacy #1230, Partial [...]
--- OUTSIDE RECORDS SUMMARY | 2023-11-25 22:20 | XMS_ITS | Continuity of Care Document ---
Author Organization [facility] Address Unknown Care Team Providers Care Biochemist Name Role Phone Piedad Poole MD Primary Care Physician Encounter [facility] Date(s): 12/14/20 - 12/21/20 [facility] Attending Physician: Piedad Poole MD Allergies, [...] physical you are due in January 2020- [phone]., # 84 tablet, 3 Refills, Maintenance, 08/23/20 7:38:00 EDT, Tablet, [facility]/pharmacy #1230, 1 tablet By Mouth Daily,Instr:Please call and schedule a... Start Date: 08/23/20 Status: Ordered nicotine 14 mg/24 hr transdermal [...]
--- OUTSIDE RECORDS SUMMARY | 2023-11-25 22:20 | XMS_ITS | Continuity of Care Document ---
Author Organization [facility] [employer] [facility] Address Unknown Care Team Providers Care Residential Program Coordinator Name Role Phone Piedad Poole MD Primary Care Physician Encounter [facility] Date(s): 02/08/21 - 03/10/21 [facility] Attending Physician: Admtr, Ar8 Admitting Physician: Admtr, Ar8 Referring Physician: Admtr, [...] 3 Refills, Maintenance, 12/23/20 11:33:00 EDT, Tablet, [facility]/pharmacy #1230, 1 tablet By Mouth Daily, 163.5, cm, 12/23/20 10:50:00 EDT, Height, 58.6, kg, 12/23/20 10:50:00 EDT, Dry Weight Start Date: 12/23/20 Status: Ordered nicotine 14 mg/24 hr transdermal film, extended release 1 patch, Topically, Daily, Do not cut patch., # 14 patch, 1 Refills, Maintenance, 01/18/21 9:18:00 EDT, Patch, [facility]/pharmacy #1230, Partial fill upon patient [...]
--- OUTSIDE RECORDS SUMMARY | 2023-11-25 22:20 | XMS_ITS | Continuity of Care Document ---
Author Organization [facility] Address Unknown Care Team Providers Care Lunchroom Operator Name Role Phone Zulema DOLL, Piedad Dyson Primary Care Physician Encounter [facility] Date(s): 10/05/21 - 11/04/21 [employer] [facility] Allergies, Adverse Reactions, Alerts No Known Allergies [...] Refills, Maintenance, 06/23/21 13:13:00 EST, Tablet, [facility]/pharmacy #1230, 1 tablet By Mouth Daily, 163, cm, 05/30/21 16:57:00 EST, Height, 57, kg, 05/30/21 16:57:00 EST, Dry Weight Start Date: 06/23/21 Status: Ordered Diflucan 150 mg oral tablet 1 tablet = 150 mg, By Mouth, Once, # 1 tablet, 1 Refills, Soft Stop, 10/05/21 12:48:00 EDT, [facility]/pharmacy #1230, Partial fill upon patient request if [...]
--- OUTSIDE RECORDS SUMMARY | 2023-11-25 22:20 | XMS_ITS | Continuity of Care Document ---
Author Organization [facility] Address [address] [address]- Care Team Providers Care Teacher Advisor Name Role Phone Zulema DOLL, Piedad Dyson Primary Care Physician Encounter [facility] Date(s): 12/25/21 - 01/24/22 [employer] [address] [address]- Allergies, Adverse Reactions, Alerts No Known Allergies [...] 4 01/31/09 Given influenza virus vaccine, live 02/03/08 Given influ virus vac, H1N1, inactive(oldterm) [...] Name: Zulema DOLL, Piedad Dyson Address: Address: [address] [place] [address], [address] [place], [place] [address]
--- OUTSIDE RECORDS SUMMARY | 2023-11-25 22:20 | XMS_ITS | Continuity of Care Document ---
Author Organization [facility] [employer] Address [address] [address]- Care Team Providers Care Tour Operator Name Role Phone Piedad Poole MD Primary Care Physician Encounter [facility] Date(s): 12/31/19 - 01/30/20 [facility] [address] [address]- [facility] Allergies, Adverse Reactions, Alerts Substance Reaction Severity [...] physical you are due in January 2020- [phone] we will send a reminder, # 84 tablet, 3 Refills, Maintenance, 09/14/19 11:17:00 EDT, Tablet, [facility]/pharmacy #1230, 1 tablet By Mouth [...]
--- OUTSIDE RECORDS SUMMARY | 2023-11-25 22:20 | XMS_ITS | Continuity of Care Document ---
Author Organization [facility] Address [address] [place] [address]- Care Team Providers Care Food Counter Attendant Name Role Phone Piedad Poole MD Primary Care Physician [phone] Encounter [facility] Date(s): 11/15/19 - 11/15/[address] [address]- [facility] Discharge Disposition: A-D/C Home Attending Physician: [...] physical you are due in January 2020- [phone] we will send a reminder, # 84 tablet, 3 Refills, Maintenance, 09/14/19 11:17:00 EDT, Tablet, [facility]/pharmacy #1230, 1 tablet By Mouth Daily,Instr:Ple... Start Date: 09/14/19 Status: Ordered doxycycline hyclate 100 mg oral capsule 1 capsule = 100 mg, By Mouth, 2 times a day, for 7 days, # 14 capsule, 0 Refills, Acute 11/22/19 16:25:00 EDT, 11/15/19 16:25:00 EDT, Capsule, [facility]/pharmacy #1230, 167, cm, 11/15/19 16:17:00 EDT, Height, [...] 0 Refills, Maintenance, 11/15/19 16:25:00 EDT, Tablet, [facility]/pharmacy #1230, 167, cm, 11/15/19 16:17:00... Start Date: 11/15/19 Status: Ordered Zofran 4 mg oral tablet 1 tablet = 4 mg, By Mouth, Every 8 hours, PRN Nausea & Vomiting, # 6 tablet, 0 Refills, Maintenance, 04/16/19 15:23:00 EST, Tablet, [facility]/pharmacy #1230, 163, cm, 04/16/19 14:55:00 EST, Height, 54.3, kg, 03/07/19 17:15:00 EST, Dry Weight Start Date: 04/16/19 Stop Date: 04/18/19 Status: Ordered Problem List Condition Effective Dates Status Health Status Inform ant Adolescent idiopathic scoliosis(Confirmed) Active Constipation(Confirmed) Active Healthy child(Confirmed) Active Neck pain(Confirmed) Active Vital Signs Most recent to oldest [Reference Range]: 1 Height 167 cm (11/15/19 4:17 PM) Weight 54.2 kg (11/15/19 4:17 PM) Oxygen Saturation [94-100 %] 98 % (11/15/19 4:17 PM) Pulse Rate [55-90 bpm] 87 bpm (11/15/19 4:17 PM) Blood Pressure [80-130/50-80 mm Hg] 123/ 83mm Hg (11/15/19 4:17 PM) Respiratory Rate [16-30 br/min] 17 br/mi n (11/15/19 4:17 PM) Temperature [96.8-100.4 DegF] 98.8 DegF (11/15/19 4:17 PM) Mode of Delivery (Oxygen) Room air (11/15/19 4:17 PM) Blood pressure sites Arm, left (11/15/19 4:17 PM) Temperature Route Temporal (11/15/19 4:17 PM) Dry Weight 54.2 kg (11/15/19 4:17 PM) Weight Obtained Via Standing scale (11/15/19 4:17 PM) Dry Weight Obtained Via Standing scale (11/15/19 4:17 PM) Social History Social History Type Response Smoking Status Never smoker; Tobacc o user in household: No entered on: 11/06/17 Sex
--- OUTSIDE RECORDS SUMMARY | 2023-11-25 22:20 | XMS_ITS | Continuity of Care Document ---
Author Organization [facility] [employer] Address [address] [address]- Care Team Providers Care Paddle Dyeing Machine Operator Name Role Phone Piedad Poole MD Primary Care Physician [phone] Encounter [facility] Date(s): 10/26/20 - 11/25/20 [facility] [employer] [address] [address]- Allergies, Adverse Reactions, Alerts Substance Reaction Severity [...] physical you are due in January 2020- [phone]., # 84 tablet, 3 Refills, Maintenance, 08/23/20 [...]
--- OUTSIDE RECORDS SUMMARY | 2023-11-25 22:20 | XMS_ITS | Continuity of Care Document ---
Author Organization [facility] Address Unknown Care Team Providers Care Neurodiagnostic Tech Name Role Phone Zulema DOLL, Piedad Dyson Primary Care Physician Encounter [facility] Date(s): 12/29/20 - 03/10/21 [employer] Attending Physician: Teresa Gao Allergies, Adverse Reactions, [...] Vaccine 7 05/25/08 Given Varicella Virus Vaccine 12/21/04 Given Measles/Mumps/Rubella Virus Vaccine 03/25/07 Given Measles/Mumps/Rubella [...] 3 Refills, Maintenance, 12/23/20 11:33:00 EDT, Tablet, [facility]/pharmacy #1230, 1 tablet By Mouth Daily, [...]
--- OUTSIDE RECORDS SUMMARY | 2023-11-25 22:20 | XMS_ITS | Continuity of Care Document ---
Author Organization [facility] Address [address] [place] [address]- Care Team Providers Care Online Program Coordinator Name Role Phone Zulema DOLL, Piedad Dyson Primary Care Physician Encounter [facility] Date(s): 05/30/21 - 05/30/[address] [address]- Discharge Disposition: A-D/C Home Attending Physician: Isaiah Bates MD Admitting Physician: Isaiah Bates MD Referring Physician: Not on Staff, Referring [...] Dry Weight Start Date: 12/23/20 Status: Ordered MorPHINE Inj 2 mg, Injection, IV Push Slowly, Once, Routine, 05/30/21 13:00:00 EST, Stop date 05/30/21 13:00:00 EST Start Date: 05/30/21 Stop Date: 05/30/21 Status: Completed Problem List Condition Effective Dates Status Health Status Inform ant Adolescent idiopathic scoliosis(Confirmed) Active Constipation(Confirmed) Active Well adult exam(Confirmed) Active Vital Signs Most recent to oldest [Reference Range]: 1 2 3 Height 163 cm (05/30/21 4:57 PM) 163 cm (05/30/21 11:01 AM) Weight 57 kg (05/30/21 4:57 PM) 57 kg (05/30/21 11:01 AM) Oxygen Saturation [94-100 %] 98 % (05/30/21 4:57 PM) 99 % (05/30/21 1:08 PM) 100 % (05/30/21 10:00 AM) Pulse Rate [55-90 bpm] 66 bpm (05/30/21 4:57 PM) 95 bpm *H* (05/30/21 1:08 PM) 75 bpm (05/30/21 10:00 AM) Body Mass Index [18.5-24.99] 21.45 (05/30/21 4:57 PM) Blood Pressure [71-110/30-71 mm Hg] 105/68mm Hg (05/30/21 4:57 PM) 120/70mm Hg *H* (05/30/21 1:08 PM) 123/81mm Hg *H* (05/30/21 10:00 AM) Respiratory Rate [16-30 br/min] 20 br/min (05/30/21 4:57 PM) 16 br/min (05/30/21 1:08 PM) 20 br/min (05/30/21 12:30 PM) Temperature [96.8-100.4 DegF] 98.7 DegF (05/30/21 1:08 PM) 98.4 DegF (05/30/21 10:00 AM) Mode of Delivery (Oxygen) Room air (05/30/21 4:57 PM) Room air (05/30/21 1:08 PM) Room air (05/30/21 10:00 AM) Blood pressure sites Arm, left (05/30/21 4:57 PM) Arm, left (05/30/21 1:08 PM) Arm, left (05/30/21 10:00 AM) Temperature Route Oral (05/30/21 1:08 PM) Oral (05/30/21 10:00 AM) Dry Weight 57 kg (05/30/21 4:57 PM) 57 kg (05/30/21 11:01 AM) Social History Social History Type Response Smoking Status Never smoker; Tobacc o user in household: No entered on: 11/06/17 Sex
--- OUTSIDE RECORDS SUMMARY | 2023-11-25 22:20 | XMS_ITS | Continuity of Care Document ---
Author Organization [facility] Address [address] [place] [address]- Care Team Providers Care Sound Effects Manager Name Role Phone Zulema DOLL, Piedad Dyson Primary Care Physician Encounter [facility] Date(s): 12/08/19 - 01/07/20 [facility] [address] [place] [address]- Allergies, Adverse Reactions, Alerts Substance Reaction Severity [...] physical you are due in January 2020- [phone] we will send a reminder, # 84 tablet, 3 Refills, Maintenance, 09/14/19 11:17:00 EDT, Tablet, [facility]/pharmacy #1230, 1 tablet By Mouth Daily,Instr:Ple... Start [...]
--- OUTSIDE RECORDS SUMMARY | 2023-11-25 22:20 | XMS_ITS | Continuity of Care Document ---
Author Organization [facility] Address [address] [address]- Care Team Providers Care Sludge Control Operator Name Role Phone Piedad Poole MD Primary Care Physician En[facility] Date(s): 03/31/20 - 04/30/20 [facility] [address] [address]- Attending Physician: AdmAlex pineda Admitting Physician: AdmtrAlex [...] physical you are due in January 2020- [phone] we will send a reminder, # 84 tablet, 3 Refills, Maintenance, 09/14/19 11:17:00 EDT, Tablet, [facility]/pharmacy #1230, 1 tablet By Mouth Daily,Instr:Ple... Start Date: 09/14/19 Status: Ordered Problem List Condition Effective Dates Status Health Status Inform ant Adolescent idiopathic scoliosis(Confirmed) Active Constipation(Confirmed) Active Healthy child(Confirmed) Active Neck pain(Confirmed) Active Social History Social History Type Response Smoking Status Never smoker; Tobacc o user in household: No entered on: 11/06/17 Sex
--- OUTSIDE RECORDS SUMMARY | 2023-11-25 22:20 | XMS_ITS | Continuity of Care Document ---
Author Organization [facility] Address Unknown Care Team Providers Care Logging Assistant Name Role Phone Piedad Poole MD Primary Care Physician [phone] Encounter [facility] Date(s): 01/18/21 - 01/25/21 [facility] Attending Physician: Piedad Poole MD Allergies, [...]
--- OUTSIDE RECORDS SUMMARY | 2023-11-25 22:20 | XMS_ITS | Continuity of Care Document ---
Author Organization [facility] [employer] Address [address] [address]- Care Team Providers Care Athletic Agent Name Role Phone Piedad Poole MD Primary Care Physician Encounter [facility] Date(s): 03/29/20 - 04/28/20 [facility] [employer] [facility] [address] [address]- Allergies, Adverse Reactions, Alerts Substance Reaction Severity [...] physical you are due in January 2020- [phone] we will send a reminder, # 84 [...]
--- OUTSIDE RECORDS SUMMARY | 2023-11-25 22:20 | XMS_ITS | Continuity of Care Document ---
Author Organization [facility] Address [address] [facility] [place] [address]- Care Team Providers Care Repair Tech Name Role Phone Piedad Poole MD Primary Care Physician Encounter [facility] Date(s): 04/16/19 - 04/23/19 [facility] [address] [facility] [place], [place] [address] Attending Physician: Anila HOOKS, Meme Referring Physician: Piedad Poole MD Allergies, Adverse [...] oldest [Reference Range]: 1 Height 163 cm (04/16/19 2:55 PM) Weight 54.5 kg (04/16/19 2:55 PM) Oxygen Saturation [94-100 %] 98 % (04/16/19 2:55 PM) Pulse Rate [55-90 bpm] 74 bpm (04/16/19 2:55 PM) Body Mass Index [18.5-24.99] 20.51 (04/16/19 2:55 PM) Blood Pressure [80-130/50-80 mm Hg] 110/ 64mm Hg (04/16/19 2:55 PM) Respiratory Rate [16-30 br/min] 16 br/mi n (04/16/19 2:55 PM) Temperature [96.8-100.4 DegF] 98.0 DegF (04/16/19 2:55 PM) Mode of Delivery (Oxygen) Nasal cannula (04/16/19 2:55 PM) Blood pressure sites Arm, left (04/16/19 2:55 PM) Temperature Route Temporal (04/16/19 2:55 PM) Weight Obtained Via Standing scale (04/16/19 2:55 PM) Social History Social History Type Response Smoking Status Never smoker; Tobacc o user in household: No entered on: 11/06/17 Sex
--- OUTSIDE RECORDS SUMMARY | 2023-11-25 22:21 | XMS_ITS | Continuity of Care Document ---
Author Organization [facility] Address [address] [place] [address]- Care Team Providers Care Informal Waiter/Waitress Name Role Phone Piedad Poole MD Primary Care Physician [phone] Encounter [facility] Date(s): 12/06/19 - 12/06/[address] [address]- [facility] Discharge Disposition: A-D/C Home Attending Physician: Louie [...] physical you are due in January 2020- [phone] we will send a reminder, # 84 [...] Status: Ordered predniSONE 10 mg oral tablet See Instructions, 5 tabs p.o. daily x3 days, then 4 tabs p.o. daily x3 days, then 3 tabs p.o. dailyx3 days, then 2 tabs p.o. daily x3 days, then 1 tab p.o. daily x3 days, # 45 tablet, 0 Refills, Acute 12/22/19 19:45:00 EDT, 12/06/19 19:54:00 EDT, Tab... Start Date: 12/06/19 Stop Date: 12/22/19 Status: Ordered predniSONE 10 mg oral tablet 1 tablet = 10 mg, By Mouth, Daily, Start with 3 tabs once a day for 3 days and then taper by one tab every 3 days for a total of 9 days, # 18 tablet, 0 Refills, Maintenance, 11/15/19 16:25:00 EDT, Tablet, [facility]/pharmacy #1230, 167, cm, 11/15/19 16:17:00... Start Date: 11/15/19 Status: Ordered Zofran 4 mg oral tablet 1 tablet = 4 mg, By Mouth, Every 8 hours, PRN Nausea & Vomiting, # 6 tablet, 0 Refills, Maintenance, 04/16/19 15:23:00 EST, Tablet, [facility]/pharmacy #1230, 163, cm, 04/16/19 14:55:00 EST, Height, 54.3, kg, 03/07/19 17:15:00 EST, Dry Weight Start Date: 04/16/19 Stop Date: 04/18/19 Status: Ordered Problem List Condition Effective Dates Status Health Status Inform ant Adolescent idiopathic scoliosis(Confirmed) Active Constipation(Confirmed) Active Healthy child(Confirmed) Active Neck pain(Confirmed) Active Vital Signs Most recent to oldest [Reference Range]: 1 2 Height 165 cm (12/06/19 7:37 PM) 165 cm (12/06/19 7:36 PM) Weight 54.6 kg (12/06/19 7:37 PM) 54.6 kg (12/06/19 7:36 PM) Oxygen Saturation [94-100 %] 100 % (12/06/19 7:36 PM) Pulse Rate [55-90 bpm] 77 bpm (12/06/19 7:36 PM) Body Mass Index [18.5-24.99] 20.06 (12/06/19 7:36 PM) Blood Pressure [80-130/50-80 mm Hg] 134/ 72mm Hg *H* (12/06/19 7:36 PM) Respiratory Rate [16-30 br/min] 18 br/mi n (12/06/19 7:36 PM) Temperature [96.8-100.4 DegF] 98.6 DegF (12/06/19 7:36 PM) Mode of Delivery (Oxygen) Room air (12/06/19 7:36 PM) Blood pressure sites Arm, left (12/06/19 7:36 PM) Temperature Route Oral (12/06/19 7:36 PM) Dry Weight 54.6 kg (12/06/19 7:37 PM) 54.6 kg (12/06/19 7:36 PM) Weight Obtained Via Standing scale (12/06/19 7:36 PM) Dry Weight Obtained Via Standing scale (12/06/19 7:36 PM) Social History Social History Type Response Smoking Status Never smoker; Tobacc o user in household: No entered on: 11/06/17 Sex
--- OUTSIDE RECORDS SUMMARY | 2023-11-25 22:21 | XMS_ITS | Continuity of Care Document ---
Author Organization [facility] Address [address] [place] [address]- Care Team Providers Care Learning Operations Specialist Name Role Phone Zulema DOLL, Piedad Dyson Primary Care Physician [phone] Encounter [facility] Date(s): 01/19/22 - 03/29/22 [facility] [address] [place] [address]- Attending Physician: Blane Rojas Allergies, Adverse Reactions, Alerts [...] Personnel Name: Zulema DOLL, Piedad Dyson Position: [facility] Primary Care Physician Member Role: PCP Address: Address: [address] [place] [address], [address] [place] [address]- Care Team Related Persons Name: BRANDON LUJAN Address: home [address], [place] Name: JOSH LUJAN Address: [place] [address] Name: JACOB RAYO Address: home [address] [place] [address] Name: ALISHA BRITO Address: home [address], [place] Name: SHON LEDESMA Address: home [address] [place], [place]
--- OUTSIDE RECORDS SUMMARY | 2023-11-25 22:21 | XMS_ITS | Continuity of Care Document ---
Author Organization [facility] [employer] [facility] Address [address] [address]- Care Team Providers Care Digital Analytics Manager Name Role Phone Piedad Poole MD Primary Care Physician [phone] Encounter [facility] Date(s): 01/01/20 - 01/31/20 [facility] [address] [address]- [facility] Attending Physician: AdmAlex pineda Admitting Physician: AdmtrAlex [...] physical you are due in January 2020- [phone] we will send a reminder, # 84 tablet, 3 Refills, Maintenance, 09/14/19 11:17:00 EDT, Tablet, [facility]/pharmacy #1230, 1 tablet By Mouth Daily,Instr:Ple... [...]
--- OUTSIDE RECORDS SUMMARY | 2023-11-25 22:21 | XMS_ITS | Continuity of Care Document ---
Author Organization [facility] Address [address] [place] [address]- Care Team Providers Care Tube Man Name Role Phone Piedad Poole MD Primary Care Physician Encounter [facility] Date(s): 04/23/22 - 05/23/22 [facility] [place] [address]- Attending Physician: Alex Sharpe Admitting Physician: AdmtrAlex Referring Physician: Admtr, ArDave Allergies, Adverse Reactions, Alerts No Known Allergies [...] Personnel Name: Zulema DOLL, Piedad Dyson Position: [facility] Primary Care Physician Member Role: PCP Address: Address: [address] [place] [address], [address] [place] [address]- Care Team Related Persons Name: BRANDON LUJAN Address: home [address] [place], [place] Name: JOSH LUJAN Address: [place] [address] Name: JACOB RAYO Address: [address] [place] [address] Name: ALISHA BRITO Address: home [address], [place] Name: SHON LEDESMA Address: home [address] [place], [place]
--- OUTSIDE RECORDS SUMMARY | 2023-11-25 22:21 | XMS_ITS | Continuity of Care Document ---
Author Organization [facility] Address Unknown Care Team Providers Care Crayon Painter Name Role Phone Zulema DOLL, Piedad Dyson Primary Care Physician Encounter [facility] Date(s): 07/10/21 - 08/09/21 [employer] Allergies, Adverse Reactions, Alerts No Known Allergies [...] 3 Refills, Maintenance, 06/23/21 13:13:00 EST, Tablet, [facility]/pharmacy #1230, 1 tablet By Mouth [...]
--- OUTSIDE RECORDS SUMMARY | 2023-11-25 22:21 | XMS_ITS | Continuity of Care Document ---
Author Organization [facility] Address Unknown Care Team Providers Care Ironworker Apprentice Name Role Phone Piedad Poole MD Primary Care Physician Encounter [facility] Date(s): 06/22/21 - 07/22/21 [employer] Allergies, Adverse Reactions, Alerts No Known Allergies [...] 3 Refills, Maintenance, 06/23/21 13:13:00 EST, Tablet, [facility]/pharmacy #1230, 1 tablet By Mouth Daily, 163, [...]
--- OUTSIDE RECORDS SUMMARY | 2023-11-25 22:21 | XMS_ITS | Continuity of Care Document ---
Author Organization [facility] Address [address] [place] [address]- Care Team Providers Care Kitchen Helper Name Role Phone Piedad Poole MD Primary Care Physician [phone] Encounter [facility] Date(s): 09/22/20 - 10/22/[address] [address]- Attending Physician: Alex Sharpe Admitting Physician: AdmtrAlex Referring Physician: Admtr ArDave Allergies, Adverse Reactions, Alerts Substance Reaction [...] physical you are due in January 2020- [phone]., # 84 tablet, 3 Refills, Maintenance, 08/23/20 [...]
--- OUTSIDE RECORDS SUMMARY | 2023-11-25 22:21 | XMS_ITS | Continuity of Care Document ---
Author Organization [facility] Address [address] [address]- Care Team Providers Care Rubber Roller Grinder Name Role Phone Piedad Poole MD Primary Care Physician Encounter [facility] Date(s): 12/18/19 - 01/17/20 [facility] [address] [address] Allergies, Adverse Reactions, Alerts Substance Reaction [...] physical you are due in January 2020- [phone] we will send a reminder, # 84 tablet, 3 Refills, Maintenance, 09/14/19 11:17:00 EDT, Tablet, [facility]/pharmacy #1230, 1 tablet By Mouth Daily,Instr:Ple... [...]
--- OUTSIDE RECORDS SUMMARY | 2023-11-25 22:21 | XMS_ITS | Continuity of Care Document ---
Author Organization [facility] [employer] [facility] Address [address] [address]- Care Team Providers Care Buyer Liaison Name Role Phone Piedad Poole MD Primary Care Physician Encounter [facility] Date(s): 10/08/19 - 11/07/19 [facility] [address] [address]- [facility] Attending Physician: Admtr, Alex Admitting Physician: AdmtrAlex Referring Physician: Admtr, Ar8 [...] physical you are due in January 2020- [phone] we will send a reminder, # 84 [...]
--- OUTSIDE RECORDS SUMMARY | 2023-11-25 22:21 | XMS_ITS | Continuity of Care Document ---
Author Organization [facility] Address Unknown Care Team Providers Care Prescription Clerk Name Role Phone Piedad Poole MD Primary Care Physician Encounter [facility] Date(s): 01/16/21 - 02/15/21 [facility] Allergies, Adverse Reactions, Alerts [...]
--- OUTSIDE RECORDS SUMMARY | 2023-11-25 22:21 | XMS_ITS | Continuity of Care Document ---
Author Organization [facility] Address [address] [address]- Care Team Providers Care Business Operations Manager Name Role Phone Zulema DOLL, Piedad Dyson Primary Care Physician [phone] Encounter [facility] Date(s): 10/04/20 - 10/11/20 [facility] [address] [address]- Attending Physician: Erin Lang MD Allergies, Adverse [...] physical you are due in January 2020- [phone]., # 84 tablet, 3 Refills, Maintenance, 08/23/20 7:38:00 EDT, Tablet, [facility]/pharmacy #1230, 1 tablet By Mouth Daily,Instr:Please [...]
--- OUTSIDE RECORDS SUMMARY | 2023-11-25 22:21 | XMS_ITS | Continuity of Care Document ---
Author Organization [facility] Address [address] [place] [address]- Care Team Providers Care President Of [place] Name Role Phone Zulema DOLL, Piedad Dyson Primary Care Physician Encounter [facility] Date(s): 07/12/21 - 09/08/21 [facility] [address] [place] [address]- Attending Physician: Jacobo Stapleton MD Allergies, Adverse Reactions, Alerts No Known [...]
--- OUTSIDE RECORDS SUMMARY | 2023-11-25 22:21 | XMS_ITS | Continuity of Care Document ---
Author Organization [facility] [employer] Address Unknown Care Team Providers Care Racebook Writer Name Role Phone Piedad Poole MD Primary Care Physician Encounter [facility] Date(s): 04/25/21 - 05/02/21 [employer] Attending Physician: Piedad Poole MD Allergies, Adverse Reactions, Alerts No Known Allergies Immunizations Given and Recorded Vaccine Date Status Refusal Reason SARS-CoV-2 (COVID-19) mRNA-1270 vaccine 12/14/20 R ecorded meningococcal group B [...] given 8Result Comment: duplicate entry Medications amoxicillin 875 mg oral tablet 1 tablet = 875 mg, By Mouth, 2 times a day, for 10 days, # 20 tablet, 0 Refills, Acute 05/05/21 9:52:00 EST, 04/25/21 9:52:00 EST, Tablet, [facility]acy [facility]12[facility], Partial fill upon patient request if theprescription is for a schedule II opioid drug., 163... Start Date: 04/25/21 Stop Date: 05/05/21 Status: Ordered Aviane 100 mcg-20 mcg oral tablet 1 tablet, By Mouth, Daily, # 84 tablet, 3 Refills, Maintenance, 12/23/20 11:33:00 EDT, Tablet, [facility], 1 tablet By Mouth Daily, 163.5, cm, 12/23/20 10:50:00 EDT, Height, 58.6, kg, 12/23/20 10:50:00 EDT, Dry Weight Start Date: 12/23/20 Status: Ordered Flonase 50 mcg/inh nasal spray See Instructions, one spray each nares bid after blowing nose., # 16 Gm, 0 Refills, Maintenance, 04/25/21 9:50:00 EST, [facility], Partial fill upon patient request if the prescription is fora schedule II opioid drug., one spray each nares bi... Start Date: 04/25/21 Status: Ordered nicotine 14 mg/24 hr transdermal [...]
--- NOTE | 2023-11-26 00:26 | PC.NURSE ---
pt called in WR multiple times with no answer
== END 2023-11-26 00:26 | disposition left against medical advice (07) ==
PROVIDERS: Physician Assistant Medical; Emergency Provider Emergency Medicine
DX: R07.89 Other chest pain (principal); Z79.899 Other long term (current) drug therapy; Z03.818 Encounter for observation for suspected exposure to other biological agents ruled out
CPT/HCPCS: 0241U; 80053; 83735; 84484; 84702; 85025; 93005; 99283

== ENCOUNTER → 2023-11-25 17:58 | Outpatient (BNV) | payer OTHER, SELFPAY | PROVIDERS: Emergency Provider Emergency Medicine; Visit Provider Internal Medicine | DX: R07.9 Chest pain, unspecified (principal); R00.0 Tachycardia, unspecified; R94.31 Abnormal electrocardiogram [ECG] [EKG] | CPT/HCPCS: 93010 ==